=== PATIENT | female | born 1950 | race Caucasian/White ===

== ENCOUNTER 2016-11-01 21:53 | Inpatient (IN) | payer OTHER ==
[~2016-11-01] VITALS: Ht 167.6 cm; Wt 58.6 kg
--- NOTE | 2016-11-01 22:30 | ERA ---
ER Documentation Chief Complaint Date/Time DATE: 11/01/16 TIME: 22:30 Chief Complaint BIBA RA90 from [facility] ([facility]), hyperglycemia BS 436,left hip pain HPI The patient is a 66-year-old female, presenting to the ER because of high blood glucose today at the long term, acute on chronic left hip pain. She denies any trauma, denies any fever, chills, neck pain, chest pain, dyspnea, abdominal pain, nausea, vomiting, dysuria, diarrhea. She does not smoke nor drink, walks with a walker. She was on antibiotic for left ischium decubitus ulcer for 10 days, ended 4 days ago. 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 ROS All systems reviewed and are negative except as per history of present illness. Medications Home Meds Reported Medications Ascorbic Acid* (Ascorbic Acid*) 500 Mg/5 Ml Syrup, 500 MG PO DAILY, #150 ML 11/02/16 Multivitamins* (Theragran*) 1 Tab Tab, 1 TAB PO DAILY, TAB 11/02/16 Ferrous Sulfate* (Ferrous Sulfate*) 325 Mg Tabec, 325 MG PO DAILY, TAB 11/02/16 Docusate Sodium* (Colace*) 100 Mg Capsule, 100 MG PO BID for HX CONSTIPATION, # 60 CAP TAKE 100MG TWICE DAILY FOR HX CONSTIPATION ; HOLD FOR LBM - 0900AM and 1700PM 11/02/16 Aspirin* (Aspirin* Chew) 81 Mg Tab.chew, 81 MG PO DAILY, TAB.CHEW 11/02/16 Insulin Detemir (Levemir Flextouch) 100 Unit/1 Ml Insuln.pen, 30 UNIT SQ DAILY FOR DM ONCE DAILY : 0900AM 11/02/16 Arginine/Ascorbate Sod/Thom AC (Arginaid Powder) 1 Each Powd.pack, 1 EACH PO BID 11/02/16 Bisacodyl* (Dulcolax*) 5 Mg Tablet.dr, 5 MG PO DAILY for CONSTIPATION, TAB 11/02/16 Allergies Allergies: Coded Allergies: Penicillins (Verified Allergy, Unknown, 11/01/16) Physical Exam Vitals Vital Signs Date Time Temp Pulse Resp B/P Pulse Ox O2 Delivery O2 Flow Rate FiO2 11/01/16 23:45 1.0 11/01/16 22:46 48 16 141/74 98 Nasal Cannula 2.0 11/01/16 22:08 98.7 98 18 125/64 95 Physical Exam Const: No acute distress. Dehydrated Head: Atraumatic. Eyes: Normal Conjunctiva. ENT: Normal External Ears, Nose and Mouth. Neck: Full range of motion. No meningismus. Resp: Clear to auscultation bilaterally. Cardio: Regular rate and rhythm. Abd: Soft, non distended, normal bowel sounds, non tender. Skin: No petechiae or rashes. Back: No midline or flank tenderness. Left ischium and lumbar decub ulcer. Ext: No cyanosis, or edema. Neur: Awake and alert. No focal deficit Psych: Normal Mood and Affect. Genitourinary: Large vulvar erosive lesion Result Diagram: 11/01/16 2300 11/01/16 2300 Results 24 hrs Laboratory Tests Test 11/01/16 21:56 11/01/16 22:41 11/01/16 23:00 11/02/16 01:02 Bedside Glucose 436mg/dL 330mg/dL Blood Gas Specimen Source Blood arterial Arterial Blood Date Drawn 11/01/2016 11:36:58 PM Arterial Blood pH (Temp corrected) 7.394 Arterial Blood pCO2 (Temp correct) 43.0mmhg Arterial Blood pO2 (Temp corrected) 88.0mmHG Arterial Blood HCO3 25.7mmol/L Arterial Blood Base Excess 0.6mmol/L Arterial Blood Oxygen Saturation 96.6mmHG Ashok Test N/A Arterial Blood Gas Puncture Site Right Brachial Arterial Blood Carboxyhemoglobin 0.1% Arterial Blood Methemoglobin 0.2% Blood Gas A-a O2 Differential 32.0mmHg Oxyhemoglobin Percent 96.3% Total Hemoglobin 11.3g/dl Blood Gas Temperature 37.0C Blood Gas Modality NASAL CANNULA FiO2 24.0% Blood Gas Notified Whom MG Blood Gas Notified Time 11/01/2016 11:41:24 PM White Blood Count 5.910^3/ul Red Blood Count 3.9310^6/ul Hemoglobin 10.1g/dl Hematocrit 33.3% Mean Corpuscular Volume 84.7fl Mean Corpuscular Hemoglobin 25.7pg Mean Corpuscular Hemoglobin Concent 30.3g/dl Red Cell Distribution Width 19.9% Platelet Count 96147^3/UL Mean Platelet Volume 10.6fl Neutrophils % 60.3% Lymphocytes % 24.7% Monocytes % 7.6% Eosinophils % 6.3% Basophils % 0.8% Nucleated Red Blood Cells % 0.0/100WBC Neutrophils # 3.610^3/ul Lymphocytes # 1.510^3/ul Monocytes # 0.510^3/ul Eosinophils # 0.410^3/ul Basophils # 0.110^3/ul Nucleated Red Blood Cells # 0.010^3/ul Prothrombin Time 11.6Sec Prothrombin Time Ratio 0.9 INR International Normalized Ratio 0.85 Activated Partial Thromboplast Time 29.1Sec Sodium Level 137mmol/L Potassium Level 4.5mmol/L Chloride Level 103mmol/L Carbon Dioxide Level 27mmol/L Anion Gap 12 Blood Urea Nitrogen 27mg/dl Creatinine 0.97mg/dl Glucose Level 394mg/dl Lactic Acid Level 1.3mmol/L Calcium Level 10.5mg/dl Total Bilirubin 0.0mg/dl Direct Bilirubin 0.00mg/dl Indirect Bilirubin 0.0mg/dl Aspartate Amino Transf (AST/SGOT) 22IU/L Alanine Aminotransferase (ALT/SGPT) 40IU/L Alkaline Phosphatase 94IU/L Total Protein 7.4g/dl Albumin 4.4g/dl Globulin 3.00g/dl Albumin/Globulin Ratio 1.46 Current Medications Medications (Trade) Dose Ordered Sig/Juanis Route PRN Reason Start Time Stop Time Status Last Admin Dose Admin Sodium Chloride (NS) 1,000 ml @ 1,000 mls/hr Q1H ONCE IV 11/02/16 00:30 11/02/16 01:29 DC 11/02/16 01:08 Insulin Human Lispro 10 unit 10 unit ONCE STAT SC 11/02/16 00:16 11/02/16 00:18 DC 11/02/16 01:05 Vancomycin HCl 250 ml @ 125 mls/hr ONCE IVPB 11/02/16 01:30 11/02/16 03:29 Meropenem (Merrem 500 Mg/ 100 ml (Pmx)) 100 ml @ 200 mls/hr NOW STAT IVPB 11/02/16 01:10 11/02/16 01:39 DC Procedures/[place] [id number] Radiology Main Line: [phone] DIAGNOSTIC IMAGING REPORT Patient: GEORGIA GAMBOA : 1950 Age: 66 Sex: F MR #: [id number] DOS: 11/01/162240 Ordering MD: DIONI BLAND MD Location: E/R Room/Bed: PROCEDURE: XR Hip. CLINICAL INDICATION: Injury to the left hip status post fall. TECHNIQUE: AP and frog lateral views of the left hip were performed. COMPARISON: None. FINDINGS: Question avulsion injuries at the lateral aspect of the left inferior pubic ramus, and consider CT correlation. These otherwise age indeterminate. No acute fracture dislocation is otherwise identified. IMPRESSION: 1. Question avulsion injuries at the lateral aspect of the left inferior pubic ramus. 2. These are age indeterminate. 3. Consider CT correlation. 4. Otherwise, no acute fracture. RPTAT: UU Physician Jona Date Time Electronically viewed and signed by Physician Jona on 11/01/2016 23:50 RS/ CC: DIONI BLAND MD [place] [id number] Radiology Main Line: [phone] DIAGNOSTIC IMAGING REPORT Patient: GEORGIA GAMBOA : 1950 Age: 66 Sex: F MR #: [id number] DOS: 11/01/162240 Ordering MD: DIONI BLAND MD Location: E/R Room/Bed: PROCEDURE: XR Chest. CLINICAL INDICATION: Hyperglycemia. TECHNIQUE: Single frontal view of the chest. COMPARISON: None. FINDINGS: The cardiomediastinal silhouette is within normal limits. The lungs are clear. No signs of pleural fluid or pneumothorax are seen. The osseous structures and soft tissues are unremarkable. IMPRESSION: No evidence for active cardiopulmonary disease. RPTAT: UU Physician Jona Date Time Electronically viewed and signed by Ana Jarrell Physician on 11/01/2016 23:52 RS/ CC: DIONI BLAND MD [place] [id number] Radiology Main Line: [phone] DIAGNOSTIC IMAGING REPORT Patient: GEORGIA GAMBOA : 1950 Age: 66 Sex: F MR #: [id number] DOS: 11/01/16 2241 Ordering MD: DIONI BLAND MD Location: E/R Room/Bed: PROCEDURE: CT Head without. CLINICAL INDICATION: Trauma status post fall. TECHNIQUE: The study was performed utilizing a multi-slice, multidetector CT scanner. Direct spiral 1 mm axial sections were obtained through the head without the use of intravenous contrast material. 1 or more of the following dose reduction techniques were utilized: Automated exposure control, adjustment of the mA and/or kV according to patient's size, iterative reconstruction technique. Coronal and sagittal reformations were obtained. The images were reviewed on a PACS workstation. RADIATION DOSE: CTDIvol: 45.0 mGy DLP: 720.2 mGy-cm COMPARISON: No prior studies are available for comparison. FINDINGS: There is no intracranial hemorrhage, extra-axial fluid collection, mass lesion, midline shift or hydrocephalus. There is mild to moderate prominence of the cerebral sulci, lateral and third ventricles. There is mild periventricular and subcortical white matter hypodensity. There is mild arteriosclerotic calcification of the parasellar internal carotid arteries. The owens-white matter differentiation is preserved. The basal cisterns are patent. The midline structures are intact. The orbits are normal in appearance. There is mild soft tissue swelling in the right supraorbital region without evidence of underlying calvarial fracture. The visualized paranasal sinuses are normally aerated. There is mild fluid opacification of the bilateral mastoid air cells and middle ear cavities are normally aerated. No evidence of coalescent mastoiditis IMPRESSION: 1. No acute intracranial abnormality. No intracranial hemorrhage, extra-axial fluid collection, mass lesion or hydrocephalous. 2. Mild to moderate peripheral and central cerebral volume loss. 3. Soft tissue swelling in the right supraorbital region without evidence of underlying calvarial fracture. 4. Mild periventricular and subcortical white matter hypodensity, likely related to chronic microangiopathic changes. RPTAT: HGAS .Blayne Quarles MD, MD Date Time Electronically viewed and signed by .Blayne Quarles MD, MD on 11/01/2016 23: 31 .S/ CC: DIONI BLAND MD [place] [id number] Radiology Main Line: [phone] DIAGNOSTIC IMAGING REPORT Patient: GEORGIA GAMBOA : 1950 Age: 66 Sex: F MR #: [id number] DOS: 11/02/16 0012 Ordering MD: DIONI BLAND MD Location: E/R Room/Bed: PROCEDURE: CT Pelvis without contrast. CLINICAL INDICATION: Pelvic pain. TECHNIQUE: A CT scan of the pelvis was performed without intravenous contrast. Coronal and sagittal reformatted images were obtained from the axial source images. Images were reviewed on a high-resolution PACS workstation. CTDIvol: 8.46 mGy. DLP: 256.98 mGy-cm. COMPARISON: None. FINDINGS: There is erosion and sclerosis of the left ischium and inferior pubic ramus, with adjacent periosteal reaction. There is a skin defect and subcutaneous fat infiltration directly posterior to this region. These findings are consistent with a stage IV decubitus ulcer with osteomyelitis. No fracture or dislocation is identified. The visualized small and large bowel are normal in caliber. No perienteric or pericolonic inflammation is seen. There is a hlbsjpyi-sf-wtdvf amount of retained gas and stool in the colon. There is presacral fat infiltration, nonspecific. The appendix is not identified. The uterus is retroverted. No adnexal mass is identified. There is no pelvic lymphadenopathy. No ascites or pneumoperitoneum is seen. Minimal arterial calcifications are noted. There is subcutaneous edema in the pelvis, left more than right. IMPRESSION: 1. Osteomyelitis of the left ischium and inferior pubic ramus, with an underlying stage IV decubitus ulcer. 2. Presacral fat infiltration, nonspecific. 3. Subcutaneous edema in the pelvis, left more than right. 4. Keqtsajl-km-tvmkp amount retained gas and stool in the colon. RPTAT: HTAR .Ramon Johnson MD, MD Date Time Electronically viewed and signed by .Ramon Johnson MD, on 11/02/2016 00:55 .R/ CC: DIONI BLAND MD Sed rate and urinalysis, left ischium and decubitus ulcer culture are pending MEDICAL MAKING DECISION: The patient is a 66-year-old female, presenting with acute left ischium and inferior pubic rami osteomyelitis, stage IV decubitus ulcer, acute diabetic hyperglycemia, acute dehydration. She was treated with 1 L normal saline, Humalog 10 units subcutaneously for acute diabetic hyperglycemia, vancomycin IV and meropenem IV for acute osteomyelitis Critical Care: Time: 35 minutes excluding all billable procedures. Treatments/Evaluations: Close monitoring and treatment of unstable vital signs, cardiorespiratory, and neurologic status, while maintaining tight balance of fluid, respiratory, and cardiac interventions. Departure Diagnosis: Primary Impression: Osteomyelitis of pelvic region, acute Additional Impressions: Sacral decubitus ulcer, stage IV Hyperglycemia due to type 2 diabetes mellitus Dehydration Condition: Stable Comments Consultation: I discussed the patient with the on-call orthopedist Dr. Tello at 1: 40 AM, who was made aware of the lab, the treatment, the CT scan finding. He recommended transferring the patient for higher level of care DIONI BLAND MD Nov 01, 2016 22:30
[2016-11-01 23:21] LABS: BASOPHIL # 0.1 10^3/ul (0.0-0.1); BASOPHILS % 0.8 % (0.0-2.0); EOSINOPHILS # 0.4 10^3/ul (0.0-0.5); EOSINOPHILS % 6.3 % (0.0-7.0); HEMATOCRIT 33.3 % (37.0-47.0); HEMOGLOBIN 10.1 g/dl (12.0-16.0); LYMPHOCYTES # 1.5 10^3/ul (0.8-2.9); LYMPHOCYTES % 24.7 % (15.0-51.0); MEAN CORPUSCULAR HEMOGLOBIN 25.7 pg (29.0-33.0); MEAN CORPUSCULAR HGB CONC 30.3 g/dl (32.0-37.0); MEAN CORPUSCULAR VOLUME 84.7 fl (82.0-101.0); MEAN PLATELET VOLUME 10.6 fl (7.4-10.4); MONOCYTE # 0.5 10^3/ul (0.3-0.9); MONOCYTES % 7.6 % (0.0-11.0); NEUTROPHIL # 3.6 10^3/ul (1.6-7.5); NEUTROPHILS % 60.3 % (39.0-77.0); PLATELET COUNT 293 10^3/UL (140-415); RED BLOOD COUNT 3.93 10^6/ul (4.20-5.40); RED CELL DISTRIBUTION WIDTH 19.9 % (11.5-14.5); WHITE BLOOD COUNT 5.9 10^3/ul (4.8-10.8)
[2016-11-01 23:24] LABS: ADD SCAN DIFF NO
--- NOTE | 2016-11-01 23:31 | RADRPT ---
PROCEDURE: CT Head without. CLINICAL INDICATION: Trauma status post fall. TECHNIQUE: The study was performed utilizing a multi-slice, multidetector CT scanner. Direct spira l 1 mm axial sections were obtained through the head without the use of intravenous contrast materia l. 1 or more of the following dose reduction techniques were utilized: Automated exposure control, adjustment of the mA and/or kV according to patient's size, iterative reconstruction technique. Co zeina and sagittal reformations were obtained. The images were reviewed on a PACS workstation. RADIATION DOSE: CTDIvol: 45.0 mGyDLP: 720.2 mGy-cm COMPARISON: No prior studies are available for comparison. FINDINGS: There is no intracranial hemorrhage, extra-axial fluid collection, mass lesion, midline shift or hyd rocephalus. There is mild to moderate prominence of the cerebral sulci, lateral and third ventricle s. There is mild periventricular and subcortical white matter hypodensity. There is mild arteriosc lerotic calcification of the parasellar internal carotid arteries. The owens-white matter differenti ation is preserved. The basal cisterns are patent. The midline structures are intact. The orbits are normal in appearance. There is mild soft tissue swelling in the right supraorbital region withou t evidence of underlying calvarial fracture. The visualized paranasal sinuses are normally aerated. There is mild fluid opacification of the bilateral mastoid air cells and middle ear cavities are n ormally aerated. No evidence of coalescent mastoiditis IMPRESSION: 1. No acute intracranial abnormality. No intracranial hemorrhage, extra-axial fluid collection, ma ss lesion or hydrocephalous. 2. Mild to moderate peripheral and central cerebral volume loss. 3. Soft tissue swelling in the right supraorbital region without evidence of underlying calvarial f racture. 4. Mild periventricular and subcortical white matter hypodensity, likely related to chronic microan giopathic changes. RPTAT: HGAS .Blayne Quarles MD, Date Time Electronically viewed and signed by .Blayne Quarles MD, MD on 11/01/2016 23:31 .S/
[2016-11-01 23:36] LABS: INR 0.85; PARTIAL THROMBOPLASTIN TIME 29.1 Sec (25.0-35.0); PROTIME 11.6 Sec (12.2-14.2); PT RATIO 0.9
[2016-11-01 23:38] LABS: ALBUMIN 4.4 g/dl (3.3-4.9); ALBUMIN/GLOBULIN RATIO 1.46; CALCIUM 10.5 mg/dl (8.4-10.2); CREATININE 0.97 mg/dl (0.44-1.00); POTASSIUM 4.5 mmol/L (3.5-5.1); TOTAL PROTEIN 7.4 g/dl (6.1-8.1)
[2016-11-01 23:41] LABS: Arterial Base Excess 0.6 mmol/L (-3.0-3); Arterial COHb 0.1 % (0.0-3.0); Arterial Fraction of Oxyhgb 96.3 % (93.0-99.0); Arterial HCO3 25.7 mmol/L (22.0-26.0); Arterial MetHb 0.2 % (0.0-1.5); Arterial Total Hemglobin 11.3 g/dl (12.0-18.0); MODE NASAL CANNULA
--- NOTE | 2016-11-01 23:50 | RADRPT ---
PROCEDURE: XR Hip. CLINICAL INDICATION: Injury to the left hip status post fall. TECHNIQUE: AP and frog lateral views of the left hip were performed. COMPARISON: None. FINDINGS: Question avulsion injuries at the lateral aspect of the left inferior pubic ramus, and consider CT c orrelation. These otherwise age indeterminate. No acute fracture dislocation is otherwise identified. IMPRESSION: 1. Question avulsion injuries at the lateral aspect of the left inferior pubic ramus. 2. These are age indeterminate. 3. Consider CT correlation. 4. Otherwise, no acute fracture. RPTAT: UU Physician Jona Date Time Electronically viewed and signed by Physician Jona on 11/01/2016 23:50 RS/
--- NOTE | 2016-11-01 23:52 | RADRPT ---
PROCEDURE: XR Chest. CLINICAL INDICATION: Hyperglycemia. TECHNIQUE: Single frontal view of the chest. COMPARISON: None. FINDINGS: The cardiomediastinal silhouette is within normal limits. The lungs are clear. No signs of pleural f luid or pneumothorax are seen. The osseous structures and soft tissues are unremarkable. IMPRESSION: No evidence for active cardiopulmonary disease. RPTAT: UU Physician Jona Date Time Electronically viewed and signed by Physician Jona on 11/01/2016 23:52 RS/
[2016-11-02] MEDS ORDERED: INSULIN LISPRO 100 UNIT/ML VIAL SC STA (00:16)
[2016-11-02] MEDS ORDERED: SOD CHLORIDE 0.9% 1,000 ML IV ONE (00:30)
--- NOTE | 2016-11-02 00:56 | RADRPT ---
PROCEDURE: CT Pelvis without contrast. CLINICAL INDICATION: Pelvic pain. TECHNIQUE: A CT scan of the pelvis was performed without intravenous contrast. Coronal and sagitt al reformatted images were obtained from the axial source images. Images were reviewed on a high-res [employer] PACS workstation. CTDIvol: 8.46 mGy. DLP: 256.98 mGy-cm. COMPARISON: None. FINDINGS: There is erosion and sclerosis of the left ischium and inferior pubic ramus, with adjacent periostea l reaction. There is a skin defect and subcutaneous fat infiltration directly posterior to this shashi on. These findings are consistent with a stage IV decubitus ulcer with osteomyelitis. No fracture o r dislocation is identified. The visualized small and large bowel are normal in caliber. No perienteric or pericolonic inflammat ion is seen. There is a sykbmzzq-ko-nsian amount of retained gas and stool in the colon. There is pr esacral fat infiltration, nonspecific. The appendix is not identified. The uterus is retroverted. No adnexal mass is identified. There is no pelvic lymphadenopathy. No ascites or pneumoperitoneum is seen. Minimal arterial calci fications are noted. There is subcutaneous edema in the pelvis, left more than right. IMPRESSION: 1. Osteomyelitis of the left ischium and inferior pubic ramus, with an underlying stage IV decubitu s ulcer. 2. Presacral fat infiltration, nonspecific. 3. Subcutaneous edema in the pelvis, left more than right. 4. Goodniov-is-stifp amount retained gas and stool in the colon. RPTAT: HTAR .Ramon Johnson MD, Date Time Electronically viewed and signed by .Ramon Johnson MD, MD on 11/02/2016 00:55 .R/
[2016-11-02] MEDS ORDERED: MEROPENEM 500 MG/100 ML (PMX) 100 ML IVPB STA (01:10)
[2016-11-02] MEDS ORDERED: VANCOMYCIN 1 GM (PMX) 250 ML IVPB SCH (01:30)
[2016-11-02] MEDS ORDERED: BISA-57 PO (01:39)
[2016-11-02] MEDS ORDERED: INSU100I27 SQ (01:39)
[2016-11-02] MEDS ORDERED: ASPI81TA3 PO (01:39)
[2016-11-02] MEDS ORDERED: DOCU-144 PO (01:39)
[2016-11-02] MEDS ORDERED: ARGI1POW19 PO (01:39)
[2016-11-02] MEDS ORDERED: ASCO500S2 PO (01:40)
[2016-11-02] MEDS ORDERED: MULTI PO (01:40)
[2016-11-02] MEDS ORDERED: FER325 PO (01:40)
[2016-11-02] MEDS ORDERED: NA P230E RC (01:57)
[2016-11-02] MEDS ORDERED: OLAN2.5T4 PO (01:57)
[2016-11-02] MEDS ORDERED: ZINC220C5 PO (01:57)
[2016-11-02] MEDS ORDERED: PARO30TA68 PO (01:57)
[2016-11-02] MEDS ORDERED: ATOR10TA65 PO (01:57)
[2016-11-02] MEDS ORDERED: LEVO88TA3 PO (01:58)
[2016-11-02] MEDS ORDERED: TYL500 PO (01:58)
[2016-11-02] MEDS ORDERED: MAGN400O4 PO (01:58)
[2016-11-02] MEDS ORDERED: SOD CHLORIDE 0.9% 1,000 ML IV SCH (03:21)
[2016-11-02] MEDS ORDERED: morphine 2 MG INJ IV PRN (03:30)
[2016-11-02] MEDS ORDERED: ONDANSETRON 4 MG INJ IV PRN (03:30)
[2016-11-02] MEDS ORDERED: ACETAMINOPHEN 325 MG TAB PO PRN (03:30)
[2016-11-02] MEDS ORDERED: NACL 0.9% 3 ML SYG IV SCH (03:30)
[2016-11-02] MEDS ORDERED: DEXTROSE 50% 50 ML SYRINGE IV PRN ×2 (03:45)
[2016-11-02] MEDS ORDERED: GLUCOSE GEL 15 GRAM TUBE PO PRN ×2 (03:45)
[2016-11-02] MEDS ORDERED: GLUCOSE GEL 15 GRAM TUBE BUCCAL PRN (03:45)
[2016-11-02] MEDS ORDERED: GLUCAGON 1 MG INJ IM PRN (03:45)
[2016-11-02] MEDS ORDERED: LEVOFLOXACIN 750MG/D5W (PMX) 150 ML IVPB SCH (04:00)
[2016-11-02] MEDS ORDERED: VANCOMYCIN IV PER PHARMACY XX SCH (04:00)
[2016-11-02 04:19] VITALS: TEMP 98.3
[2016-11-02] MEDS: HEPARIN 5,000 UNIT/0.5 ML VIAL SC SCH ×3 (05:00→20:31)
[2016-11-02 05:08] VITALS: Ht 167.6 cm; Wt 58.6 kg
[2016-11-02 05:15] VITALS: BP 143/65; PULSE 71; RESP 18
[2016-11-02] MEDS: LEVOFLOXACIN 750MG/D5W (PMX) 150 ML IVPB SCH (06:11)
[2016-11-02 08:45] VITALS: BP 147/82; RESP 18
[2016-11-02] MEDS: LEVOTHYROXINE 88 MCG TAB PO SCH (08:50)
[2016-11-02] MEDS: INSULIN ASPART [NOVOLOG] 3 ML PEN SC SCH ×5 (08:50→23:02)
[2016-11-02] MEDS: MULTIVITAMINS THERAPEUTIC TAB PO SCH (08:51)
[2016-11-02] MEDS: ZINC SULFATE 220 MG CAP PO SCH (08:51)
[2016-11-02] MEDS: FERROUS SULFATE (EC) 325 MG TAB PO SCH (08:51)
[2016-11-02] MEDS: OLANZAPINE 2.5 MG TAB PO SCH ×2 (08:51→20:29)
[2016-11-02] MEDS: ASPIRIN 81 MG TAB PO SCH (08:51)
[2016-11-02] MEDS: PAROXETINE 10 MG TAB PO SCH (08:51)
--- NOTE | 2016-11-02 08:54 | HP ---
Date/Time of Note Date/Time of Note DATE: 11/02/16 TIME: 08:33 Assessment/Plan VTE Prophylaxis VTE Prophylaxis Intervention: heparin Lines/Catheters IV Catheter Type (from [facility]): Peripheral IV Urinary Cath still in place: No Assessment/Plan Chief Complaint/Hosp Course This is a 66-year-old female being admitted to the [facility] floor for: #1 Osteomyelitis of the left atrium and pubic ramus: CT identified osteomyelitis. Patient at the current time is afebrile and white blood cell count was within normal values. Nonetheless we will start patient on vancomycin and Levaquin at this time for broad-spectrum coverage. Patient is allergic to penicillins. Orthopedic doctor Elisha was notified of the findings however it was recommended the patient be transferred to higher level of care. [facility] case fitter was spoken to however no accepting facility was found at this time it was recommended that the patient be admitted to [facility] and [facility] will try to find a transferring facility in the morning. Continue pain control. #2 stage IV decubitus ulcer: Ulcer was underlying #1. Patient currently on antibiotics. Will consult wound care for further valuation and treatment strategy. #3 diabetes mellitus: Patient's blood sugars are elevated today in the [facility] and around the 300s at our facility. At the current time will resume patient's home medications and put patient on insulin sliding scale and attempt to monitor blood sugars. #4 hypothyroidism: Continue patient's home medication #5 mental health: Patient with history of schizophrenia and depression. 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 #7 anemia: Continue to monitor this time. Blood transfusions as indicated. #8 DVT and GI prophylaxis: Heparin, Protonix Further treatment strategy will be implemented as per the clinical course. We are awaiting [facility] to find at the transferring facility that we can transfer the patient for higher level of care. Problems: HPI/ROS Admit Date/Time Admit Date/Time Nov 02, 2016 at 02:58 Hx of Present Illness cc: high blood glucose The patient is a 66-year-old female, presenting to the ER because of high blood glucose today at the [facility], acute on chronic left hip pain. She denies any trauma, denies any fever, chills, neck pain, chest pain, dyspnea, abdominal pain, nausea, vomiting, dysuria, diarrhea. She does not smoke nor drink, walks with a walker. She was on antibiotic for left ischium decubitus ulcer for 10 days, ended 4 days ago. She had a pelvic MRI about 4 days ago, the result is unknown. When I examined the patient the patient denies any hip pain. Allergies: Penicillins Medications: See SMITHA ARIAS Const: As per HPI Eyes : No pain discharge or redness or change in visual acuity ENT: No pain, sore throat, congestion, congestion, dysphagia or discharge Respiratory: No shortness of breath, cough, sputum, wheezing, or pleuritic pain Cardiovascular: No chest pain, palpitation, PND, or edema GI : no change in appetite, abdominal pain, nausea, vomiting, diarrhea, constipation, or change in the color his stool Genitourinary: No dysuria, hematuria, flank pain , discharge or CVA tenderness Musculoskeletal: As per HPI Skin: No rash, bruising or hives Neuro: No headache, dizziness, syncope, seizure, focal weakness Endocrine: No polyuria, polydipsia, temperature intolerance Psych: No hallucination, depression, anxiety or suicidal ideation PMH/Family/Social Past Medical History Diabetes mellitus, anemia, dyslipidemia, hypothyroidism, GERD, schizophrenia, depression, history of vulvar malignancy treated with radiation 6 months ago, history of lumbar and left ischium decubitus ulcer about 6 months after radiation therapy Past Surgical History Past Surgical Hx: no surgical history Family History Significant Family History: no pertinent family hx Social History Smoking Status: Former smoker Exam/Review of Systems Vital Signs Vitals Vital Signs Date Time Temp Pulse Resp B/P Pulse Ox O2 Delivery O2 Flow Rate FiO2 11/02/16 05:15 98.0 71 18 143/65 98 Nasal Cannula 2.0 Exam Exam General: Patient is a pleasant female laying in bed in no acute distress HEENT: Atraumatic, normocephalic. The pupils are equal, round and reactive. Extraocular motor are intact Neck: Supple with full range of motion. No rigidity or meningismus Chest: Nontender Lungs: Clear to auscultation bilaterally no crackles rales or wheezing Heart: Normal S1-S2, Regular rhythm and rate. No murmur, S3, or S4 Abdomen: Soft , nontender, nondistended , bowel sounds are present. No guarding no rebound tenderness , No masses or organomegaly. No costovertebral temporal angle mass Extremities: Normal to inspection, no edema no cyanosis Neurologic: Normal mental status, speech normal, cranial nerves II through XII are intact, motor and sensory are intact, no focal weakness Skin: Mild bruising noted on the bilateral arms and of the left upper eyelid Additional Comments PROCEDURE: XR Chest. CLINICAL INDICATION: Hyperglycemia. TECHNIQUE: Single frontal view of the chest. COMPARISON: None. FINDINGS: The cardiomediastinal silhouette is within normal limits. The lungs are clear. No signs of pleural fluid or pneumothorax are seen. The osseous structures and soft tissues are unremarkable. IMPRESSION: No evidence for active cardiopulmonary disease. RPTAT: [facility] Physician Jona Date Time Electronically viewed and signed by Physician Jona on 11/01/2016 23:52 RS/ CC: DIONI BLAND MD [place] [id number] Radiology Main Line: [phone] DIAGNOSTIC IMAGING REPORT Patient: GEORGIA GAMBOA : 1950 Age: 66 Sex: F [id number] DOS: 11/01/16 2241 Ordering MD: DIONI BLAND MD Location: E/R Room/Bed: PROCEDURE: CT Head without. CLINICAL INDICATION: Trauma status post fall. TECHNIQUE: The study was performed utilizing a multi-slice, multidetector CT scanner. Direct spiral 1 mm axial sections were obtained through the head without the use of intravenous contrast material. 1 or more of the following dose reduction techniques were utilized: Automated exposure control, adjustment of the mA and/or kV according to patient's size, iterative reconstruction technique. Coronal and sagittal reformations were obtained. The images were reviewed on a PACS workstation. RADIATION DOSE: CTDIvol: 45.0 mGy DLP: 720.2 mGy-cm COMPARISON: No prior studies are available for comparison. FINDINGS: There is no intracranial hemorrhage, extra-axial fluid collection, mass lesion, midline shift or hydrocephalus. There is mild to moderate prominence of the cerebral sulci, lateral and third ventricles. There is mild periventricular and subcortical white matter hypodensity. There is mild arteriosclerotic calcification of the parasellar internal carotid arteries. The owens-white matter differentiation is preserved. The basal cisterns are patent. The midline structures are intact. The orbits are normal in appearance. There is mild soft tissue swelling in the right supraorbital region without evidence of underlying calvarial fracture. The visualized paranasal sinuses are normally aerated. There is mild fluid opacification of the bilateral mastoid air cells and middle ear cavities are normally aerated. No evidence of coalescent mastoiditis IMPRESSION: 1. No acute intracranial abnormality. No intracranial hemorrhage, extra-axial fluid collection, mass lesion or hydrocephalous. 2. Mild to moderate peripheral and central cerebral volume loss. 3. Soft tissue swelling in the right supraorbital region without evidence of underlying calvarial fracture. 4. Mild periventricular and subcortical white matter hypodensity, likely related to chronic microangiopathic changes. RPTAT: HGAS .Blayne Quarles MD, MD Date Time Electronically viewed and signed by .Blayne Quarles MD, MD on 11/01/2016 23: 31 .S/ CC: DIONI BLAND MD [place] [id number] Radiology Main Line: [phone] DIAGNOSTIC IMAGING REPORT Patient: GEORGIA GAMBOA : 1950 Age: 66 Sex: F MR #: [id number] DOS: 11/02/16 0012 Ordering MD: DIONI BLAND MD Location: E/R Room/Bed: PROCEDURE: CT Pelvis without contrast. CLINICAL INDICATION: Pelvic pain. TECHNIQUE: A CT scan of the pelvis was performed without intravenous contrast. Coronal and sagittal reformatted images were obtained from the axial source images. Images were reviewed on a high-resolution PACS workstation. CTDIvol: 8.46 mGy. DLP: 256.98 mGy-cm. COMPARISON: None. FINDINGS: There is erosion and sclerosis of the left ischium and inferior pubic ramus, with adjacent periosteal reaction. There is a skin defect and subcutaneous fat infiltration directly posterior to this region. These findings are consistent with a stage IV decubitus ulcer with osteomyelitis. No fracture or dislocation is identified. The visualized small and large bowel are normal in caliber. No perienteric or pericolonic inflammation is seen. There is a qncptfeh-[id number] amount of retained gas and stool in the colon. There is presacral fat infiltration, nonspecific. The appendix is not identified. The uterus is retroverted. No adnexal mass is identified. There is no pelvic lymphadenopathy. No ascites or pneumoperitoneum is seen. Minimal arterial calcifications are noted. There is subcutaneous edema in the pelvis, left more than right. IMPRESSION: 1. Osteomyelitis of the left ischium and inferior pubic ramus, with an underlying stage IV decubitus ulcer. 2. Presacral fat infiltration, nonspecific. 3. Subcutaneous edema in the pelvis, left more than right. 4. Qrgghgjs-[id number]-iqzqu amount retained gas and stool in the colon. RPTAT: HTAR .Ramon Johnson MD, MD Date Time Electronically viewed and signed by .Ramon Johnson MD, on 11/02/2016 00:55 .R/ Labs Result Diagram: 11/01/16 2300 11/01/16 2300 Medications Medications Current Medications Aspirin (Aspirin) 81 mg DAILY PO ; Start 11/02/16 at 09:00 Atorvastatin Calcium (Lipitor) 10 mg QHS PO ; Start 11/02/16 at 21:00 Bisacodyl (Dulcolax) 5 mg DAILY PO ; Start 11/02/16 at 09:00 Docusate Sodium (Colace) 100 mg BID PO ; Start 11/02/16 at 09:00 Ferrous Sulfate (Ferrous Sulfate (Ec)) 325 mg DAILY PO ; Start 11/02/16 at 09:00 Insulin Detemir (Levemir) 30 unit QHS SC ; Start 11/02/16 at 21:00 Magnesium Hydroxide (Milk Of Mag) 30 ml BID PO ; Start 11/02/16 at 09:00 Multivitamins Therapeutic (Theragran) 1 tab DAILY PO ; Start 11/02/16 at 09:00 Olanzapine (Zyprexa) 2.5 mg BID PO ; Start 11/02/16 at 09:00 Paroxetine HCl (Paxil) 30 mg DAILY PO ; Start 11/02/16 at 09:00 Zinc Sulfate 220 mg 220 mg DAILY PO ; Start 11/02/16 at 09:00 Sodium Chloride (NS) 1,000 ml @ 75 mls/hr [id number] IV Last administered on t 06:11; Admin Dose 75 MLS/HR; Start 11/02/16 at 03:21 Ondansetron HCl (Zofran Inj) 4 mg Q6H PRN IV NAUSEA AND/OR VOMITING; Start 11/02 at 03:30 Acetaminophen (Tylenol Tab) 650 mg Q6H PRN PO PAIN LEVEL 1-3 OR FEVER; Start at 03:30 Morphine Sulfate (morphine) 2 mg Q4H PRN IV PAIN LEVEL 7-10; Start 11/02/16 at 03:30 Heparin Sodium (Porcine) (Heparin (5000 Units/0.5 ml)) 5,000 unit Q12 SC ; Start 11/02/16 at 03:36 Diagnostic Test (Pha) (Accu-Chek) 1 ea 02 XX ; Start 11/03/16 at 02:00 Miscellaneous Information 1 ea NOTE XX ; Start 11/02/16 at 03:45 Glucose (Glutose) 15 gm Q15M PRN PO DECREASED GLUCOSE; Start 11/02/16 at 03:45 Glucose (Glutose) 22.5 gm Q15M PRN PO DECREASED GLUCOSE; Start 11/02/16 at 03:45 Dextrose (D50w Syringe) 25 ml Q15M PRN IV DECREASED GLUCOSE; Start 11/02/16 at 03:45 Dextrose (D50w Syringe) 50 ml Q15M PRN IV DECREASED GLUCOSE; Start 11/02/16 at 03:45 Glucagon (Glucagen) 1 mg Q15M PRN IM DECREASED GLUCOSE; Start 11/02/16 at 03:45 Glucose 15 gm 15 gm Q15M PRN BUCCAL DECREASED GLUCOSE; Start 11/02/16 at 03:45 Vancomycin HCl 750 mg/Sodium Chloride 150 ml @ 75 mls/hr Q12H IVPB ; Start 11/02 at 15:00 Levofloxacin/ Dextrose (Levaquin 750 Mg/ D5W 150 ml (Pmx)) 150 ml @ 100 mls/hr Q24H IVPB Last administered on 11/02/16t 06:11; Admin Dose 100 MLS/HR; Start 11/02/16 at 06:00 FREDY KAUFMAN Nov 02, 2016 08:44
[2016-11-02] MEDS ORDERED: DOCUSATE SODIUM 100 MG CAP PO SCH ×2 (09:00→11:00)
[2016-11-02] MEDS ORDERED: BISACODYL (EC) 5 MG TAB PO SCH (09:00)
[2016-11-02] MEDS ORDERED: MAGNESIUM HYDROXIDE 30ML CUP PO SCH (09:00)
[2016-11-02] MEDS ORDERED: POLYETHYLENE GLYCOL 17 GM PACKET PO SCH (11:00)
[2016-11-02] MEDS: SOD CHLORIDE 0.9% 1,000 ML IV SCH ×2 (11:00→23:02)
[2016-11-02] MEDS: VANCOMYCIN 750 MG in SOD CHLORIDE 0.9% 150 ML IVPB SCH (15:20)
--- NOTE | 2016-11-02 15:52 | QN ---
Documentation Comment No indication for transfer at this time No acute surgical need unless indicated by ID continue broad spectrum abx for now and f/u ID recommendations. ROBERT OTTO Nov 02, 2016 15:52
[2016-11-02 20:11] VITALS: BP 137/79; RESP 19
[2016-11-02] MEDS: INSULIN DETEMIR [LEVEMIR] 3ML CART SC SCH (20:28)
[2016-11-02] MEDS: ATORVASTATIN 10 MG TAB PO SCH (20:29)
[2016-11-03] MEDS: ACCU-CHEK XX SCH (02:06)
[2016-11-03] MEDS: VANCOMYCIN 750 MG in SOD CHLORIDE 0.9% 150 ML IVPB SCH (03:33)
[2016-11-03] MEDS: LEVOFLOXACIN 750MG/D5W (PMX) 150 ML IVPB SCH (05:39)
[2016-11-03] MEDS: LEVOTHYROXINE 88 MCG TAB PO SCH (06:37)
[2016-11-03 06:43] LABS: BASOPHIL # 0.1 10^3/ul (0.0-0.1); BASOPHILS % 1.3 % (0.0-2.0); EOSINOPHILS # 0.4 10^3/ul (0.0-0.5); EOSINOPHILS % 7.3 % (0.0-7.0); HEMATOCRIT 34.1 % (37.0-47.0); HEMOGLOBIN 10.3 g/dl (12.0-16.0); LYMPHOCYTES # 1.6 10^3/ul (0.8-2.9); LYMPHOCYTES % 30.2 % (15.0-51.0); MEAN CORPUSCULAR HEMOGLOBIN 25.9 pg (29.0-33.0); MEAN CORPUSCULAR HGB CONC 30.2 g/dl (32.0-37.0); MEAN CORPUSCULAR VOLUME 85.7 fl (82.0-101.0); MEAN PLATELET VOLUME 10.7 fl (7.4-10.4); MONOCYTE # 0.4 10^3/ul (0.3-0.9); MONOCYTES % 6.7 % (0.0-11.0); NEUTROPHIL # 2.9 10^3/ul (1.6-7.5); NEUTROPHILS % 54.1 % (39.0-77.0); PLATELET COUNT 297 10^3/UL (140-415); RED BLOOD COUNT 3.98 10^6/ul (4.20-5.40); RED CELL DISTRIBUTION WIDTH 20.1 % (11.5-14.5); WHITE BLOOD COUNT 5.4 10^3/ul (4.8-10.8)
[2016-11-03 07:04] LABS: IRON 54 ug/dl (35-150)
[2016-11-03 07:08] LABS: ADD SCAN DIFF NO; ALBUMIN/GLOBULIN RATIO 1.33; BILIRUBIN,INDIRECT 0.1 mg/dl (0-1.1); BILIRUBIN,TOTAL 0.1 mg/dl (0.2-1.3); CALCIUM 10.1 mg/dl (8.4-10.2); CREATININE 0.76 mg/dl (0.44-1.00); POTASSIUM 4.3 mmol/L (3.5-5.1)
[2016-11-03 07:13] LABS: TOTAL IRON BINDING CAPACITY 336 ug/dl (241-421)
[2016-11-03] MEDS: INSULIN ASPART [NOVOLOG] 3 ML PEN SC SCH ×4 (08:15→21:00)
[2016-11-03 08:21] VITALS: BP 130/72; RESP 18
[2016-11-03] MEDS: POLYETHYLENE GLYCOL 17 GM PACKET PO SCH (08:59)
[2016-11-03] MEDS: MULTIVITAMINS THERAPEUTIC TAB PO SCH (08:59)
[2016-11-03] MEDS: ASPIRIN 81 MG TAB PO SCH (08:59)
[2016-11-03] MEDS: PAROXETINE 10 MG TAB PO SCH (08:59)
[2016-11-03] MEDS: FERROUS SULFATE (EC) 325 MG TAB PO SCH (08:59)
[2016-11-03] MEDS ORDERED: MAGNESIUM HYDROXIDE 30ML CUP PO PRN (09:00)
[2016-11-03] MEDS ORDERED: DOCUSATE SODIUM 100 MG CAP PO PRN (09:00)
[2016-11-03] MEDS ORDERED: BISACODYL (EC) 5 MG TAB PO PRN (09:00)
[2016-11-03] MEDS ORDERED: MAGNESIUM HYDROXIDE 30ML CUP PO SCH (09:00)
[2016-11-03] MEDS ORDERED: BISACODYL (EC) 5 MG TAB PO SCH (09:00)
[2016-11-03] MEDS ORDERED: DOCUSATE SODIUM 100 MG CAP PO SCH (09:00)
[2016-11-03] MEDS: OLANZAPINE 2.5 MG TAB PO SCH ×2 (09:03→21:01)
[2016-11-03] MEDS: ZINC SULFATE 220 MG CAP PO SCH (09:04)
[2016-11-03] MEDS: HEPARIN 5,000 UNIT/0.5 ML VIAL SC SCH ×2 (09:11→21:02)
[2016-11-03] MEDS: SOD CHLORIDE 0.9% 1,000 ML IV SCH (12:00)
[2016-11-03] MEDS: VANCOMYCIN 1 GM in NS 250 ML IVPB SCH (15:53)
--- NOTE | 2016-11-03 16:11 | CONS ---
Date/Time of Note Date/Time of Note DATE: 11/03/16 TIME: 16:10 Assessment/Plan Assessment/Plan Chief Complaint/Hosp Course ID SHORT NOTE * * * ID ASSESSMENT 1. ID RECOMMENDATIONS 1. ID Problems: Consultation Date/Type/Reason Admit Date/Time Nov 02, 2016 at 13:50 Initial Consult Date Exam/Review of Systems Vital Signs Vitals Vital Signs Date Time Temp Pulse Resp B/P Pulse Ox O2 Delivery O2 Flow Rate FiO2 11/03/16 08:21 98.2 81 18 130/72 95 11/02/16 05:15 Nasal Cannula 2.0 Intake and Output 11/02/16 11/02/16 11/03/16 15:00 23:00 07:00 Intake Total 300 ml 1210 ml 450 ml Balance 300 ml 1210 ml 450 ml Results Result Diagram: 11/03/16 0613 11/03/16 0613 Results 24 hrs Laboratory Tests Test 11/02/16 17:23 11/02/16 20:25 11/02/16 22:57 11/03/16 02:06 Bedside Glucose 277 H 310 H 202 119 Test 11/03/16 06:13 11/03/16 08:21 11/03/16 12:33 11/03/16 14:15 White Blood Count 5.4 Red Blood Count 3.98 L Hemoglobin 10.3 L Hematocrit 34.1 L Mean Corpuscular Volume 85.7 Mean Corpuscular Hemoglobin 25.9 L Mean Corpuscular Hemoglobin Concent 30.2 L Red Cell Distribution Width 20.1 H Platelet Count 297 Mean Platelet Volume 10.7 H Neutrophils % 54.1 Lymphocytes % 30.2 Monocytes % 6.7 Eosinophils % 7.3 H Basophils % 1.3 Nucleated Red Blood Cells % 0.0 Neutrophils # 2.9 Lymphocytes # 1.6 Monocytes # 0.4 Eosinophils # 0.4 Basophils # 0.1 Nucleated Red Blood Cells # 0.0 Sodium Level 143 Potassium Level 4.3 Chloride Level 103 Carbon Dioxide Level 27 Anion Gap 17 H Blood Urea Nitrogen 22 H Creatinine 0.76 Glucose Level 75 # Calcium Level 10.1 Iron Level 54 Total Iron Binding Capacity 336 Percent Iron Saturation 16 L Total Bilirubin 0.1 L Direct Bilirubin 0.00 Indirect Bilirubin 0.1 Aspartate Amino Transf (AST/SGOT) 27 Alanine Aminotransferase (ALT/SGPT) 44 Alkaline Phosphatase 89 Total Protein 7.0 Albumin 4.0 Globulin 3.00 Albumin/Globulin Ratio 1.33 Bedside Glucose 73 170 Vancomycin Level Trough 11.7 Medications Medications Current Medications Aspirin (Aspirin) 81 mg DAILY PO Last administered on 11/03/16 08:59; Admin Dose 81 MG; Start 11/02/16 at 09:00 Atorvastatin Calcium (Lipitor) 10 mg QHS PO Last administered on 11/02/16 20:29 ; Admin Dose 10 MG; Start 11/02/16 at 21:00 Ferrous Sulfate (Ferrous Sulfate (Ec)) 325 mg DAILY PO Last administered on 11/03 08:59; Admin Dose 325 MG; Start 11/02/16 at 09:00 Insulin Detemir (Levemir) 30 unit QHS SC Last administered on 11/02/16 20:28; Admin Dose 30 UNIT; Start 11/02/16 at 21:00 Multivitamins Therapeutic (Theragran) 1 tab DAILY PO Last administered on 08:59; Admin Dose 1 TAB; Start 11/02/16 at 09:00 Olanzapine (Zyprexa) 2.5 mg BID PO Last administered on 11/03/16 09:03; Admin Dose 2.5 MG; Start 11/02/16 at 09:00 Paroxetine HCl (Paxil) 30 mg DAILY PO Last administered on 11/03/16 08:59; Admin Dose 30 MG; Start 11/02/16 at 09:00 Zinc Sulfate (Zinc Sulfate) 220 mg DAILY PO Last administered on 11/03/16 09:04 ; Admin Dose 220 MG; Start 11/02/16 at 09:00 Ondansetron HCl (Zofran Inj) 4 mg Q6H PRN IV NAUSEA AND/OR VOMITING; Start 11/02 at 03:30 Acetaminophen (Tylenol Tab) 650 mg Q6H PRN PO PAIN LEVEL 1-3 OR FEVER; Start at 03:30 Morphine Sulfate (morphine) 2 mg Q4H PRN IV PAIN LEVEL 7-10; Start 11/02/16 at 03:30 Heparin Sodium (Porcine) (Heparin (5000 Units/0.5 ml)) 5,000 unit Q12 SC Last administered on 11/03/16 09:11; Admin Dose 5,000 UNIT; Start 11/02/16 at 03:36 Diagnostic Test (Pha) (Accu-Chek) 1 ea 02 XX Last administered on 11/03/16 02: 06; Admin Dose 1 EA; Start 11/03/16 at 02:00 Miscellaneous Information 1 ea NOTE XX ; Start 11/02/16 at 03:45 Glucose (Glutose) 15 gm Q15M PRN PO DECREASED GLUCOSE; Start 11/02/16 at 03:45 Glucose (Glutose) 22.5 gm Q15M PRN PO DECREASED GLUCOSE; Start 11/02/16 at 03:45 Dextrose (D50w Syringe) 25 ml Q15M PRN IV DECREASED GLUCOSE; Start 11/02/16 at 03:45 Dextrose (D50w Syringe) 50 ml Q15M PRN IV DECREASED GLUCOSE; Start 11/02/16 at 03:45 Glucagon (Glucagen) 1 mg Q15M PRN IM DECREASED GLUCOSE; Start 11/02/16 at 03:45 Glucose 15 gm 15 gm Q15M PRN BUCCAL DECREASED GLUCOSE; Start 11/02/16 at 03:45 Levofloxacin/ Dextrose (Levaquin 750 Mg/ D5W 150 ml (Pmx)) 150 ml @ 100 mls/hr Q24H IVPB Last administered on 11/03/16 05:39; Admin Dose 100 MLS/HR; Start 11/02/16 at 06:00 Polyethylene Glycol (Miralax) 8.5 gm DAILY PO Last administered on 11/03/16 08: 59; Admin Dose 8.5 GM; Start 11/03/16 at 09:00 Bisacodyl (Dulcolax) 5 mg BID PRN PO CONSTIPATION; Start 11/03/16 at 09:00 Docusate Sodium (Colace) 100 mg BID PRN PO CONSTIPATION; Start 11/03/16 at 09:00 Magnesium Hydroxide 30 ml 30 ml DAILY PRN PO CONSTIPATION; Start 11/03/16 at 09: 00 Vancomycin HCl (Vancocin) 250 ml @ 125 mls/hr Q12H IVPB Last administered on 15:53; Admin Dose 125 MLS/HR; Start 11/03/16 at 15:30 TOMER GUEVARA NP Nov 03, 2016 16:11
--- NOTE | 2016-11-03 16:16 | CONS ---
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 Referring Provider: FREDY KAUFMAN Patient is a 66-year-old woman who was transferred on 11/01/2016 from [facility] with a chief complaint of hyperglycemia of 436 and left hip pain. Prior to this time the patient was on antibiotic therapy 10 days for left ischial decubitus. Her situation was complicated by anemia dyslipidemia hypothyroidism gastroesophageal reflux disease and diabetes mellitus. Patient was diagnosed as having vulvar carcinoma more than 6 months ago and received a course of radiation therapy. The patient had a discomfort in this area and had developed a ulceration the over the left ischium. She presently has a large erosive lesion. X-ray of the left hip revealed avulsion injuries at the lateral aspect of the left inferior pubic ramus. A CT scan scan of the pelvis revealed subcutaneous edema left being greater than the right.. The patient is currently being treated for osteomyelitis which involves vancomycin and Levaquin because the patient is penicillin allergic. Culture of the drainage from the left ischial decubitus is currently growing small numbers of gram-positive cocci and a gram-negative chiki. The patient has not been febrile and has not had elevation of white blood cell count with a white blood cell count being 5900. Past medical history patient has a history of schizophrenia Diabetes mellitus Anemia Hyperlipidemia Hypothyroidism Gastroesophageal reflux disease And history of valvular malignancy status post radiation treatment 6 months ago. History of ischial and sacral decubitus ulcer. Her medications included the previously mentioned medication Argent aid as aspirin 81 mg iron 325 mg daily and vitamin C. Patient is allergic to penicillin. Physical examination: pleasant, obese, confused, and resistant to clinical information. Pupils equal round react to light extraocular movements are full mucous HEENT: Membranes of the mouth are moist. Teeth are in poor repair. No jugular venous distention. Chest: Clear to percussion and auscultation. Heart: Regular no gallop murmur or rub. Abdomen: Protuberant, obese. Bowel sounds present swelling pubic area nondraining ulcer left ischium and sacral area. Extremities: No edema cyanosis. Neurologic: Alert conversant. Not a good historian. Resists talking about serious problems. Cranial nerves II through XII grossly within normal limits. Motor sensory and cerebellar appear to be grossly intact. Gait testing was not performed. Diagnosis: Osteomyelitis left ischium Unstageable ulcers left ischium and sacrum Recent vulvar carcinoma status post radiation therapy 6 months Gastroesophageal reflux disease Schizophrenia. Recommendations: Continue vancomycin pending culture results Substitute ceftriaxone for Levaquin. Penicillin allergy is rarely if ever a problem. This medication gives a much higher blood level then Levaquin which in this case is especially essential because the patient has compromised circulation blood supply because of radiation therapy. The x-rays intimate that there may be an equivalent to a sequestrum by the avulsion fragments in the left ischium described previously. There may be a general healing problem because of the paucity of blood vessels due to radiation therapy and scarring. She may require a muscular low cutaneous vascular pedicle to adequately treat the situation eventually. She probably will need removal of any loose pieces of bone that would affect his sequestra. I have seen this patient for Dr.Jerrold Ingram. Aurelio Escobedo MD Past Surgical History Past Surgical Hx: no surgical history Social History Smoking Status: Former smoker Exam/Review of Systems Vital Signs Vitals Vital Signs Date Time Temp Pulse Resp B/P Pulse Ox O2 Delivery O2 Flow Rate FiO2 11/03/16 08:21 98.2 81 18 130/72 95 11/02/16 05:15 Nasal Cannula 2.0 Intake and Output 11/02/16 11/02/16 11/03/16 15:00 23:00 07:00 Intake Total 300 ml 1210 ml 450 ml Balance 300 ml 1210 ml 450 ml Results Result Diagram: 11/03/16 0613 11/03/16 0613 Results 24 hrs Laboratory Tests Test 11/02/16 17:23 11/02/16 20:25 11/02/16 22:57 11/03/16 02:06 Bedside Glucose 277 H 310 H 202 119 Test 11/03/16 06:13 11/03/16 08:21 11/03/16 12:33 11/03/16 14:15 White Blood Count 5.4 Red Blood Count 3.98 L Hemoglobin 10.3 L Hematocrit 34.1 L Mean Corpuscular Volume 85.7 Mean Corpuscular Hemoglobin 25.9 L Mean Corpuscular Hemoglobin Concent 30.2 L Red Cell Distribution Width 20.1 H Platelet Count 297 Mean Platelet Volume 10.7 H Neutrophils % 54.1 Lymphocytes % 30.2 Monocytes % 6.7 Eosinophils % 7.3 H Basophils % 1.3 Nucleated Red Blood Cells % 0.0 Neutrophils # 2.9 Lymphocytes # 1.6 Monocytes # 0.4 Eosinophils # 0.4 Basophils # 0.1 Nucleated Red Blood Cells # 0.0 Sodium Level 143 Potassium Level 4.3 Chloride Level 103 Carbon Dioxide Level 27 Anion Gap 17 H Blood Urea Nitrogen 22 H Creatinine 0.76 Glucose Level 75 # Calcium Level 10.1 Iron Level 54 Total Iron Binding Capacity 336 Percent Iron Saturation 16 L Total Bilirubin 0.1 L Direct Bilirubin 0.00 Indirect Bilirubin 0.1 Aspartate Amino Transf (AST/SGOT) 27 Alanine Aminotransferase (ALT/SGPT) 44 Alkaline Phosphatase 89 Total Protein 7.0 Albumin 4.0 Globulin 3.00 Albumin/Globulin Ratio 1.33 Bedside Glucose 73 170 Vancomycin Level Trough 11.7 Medications Medications Current Medications Aspirin (Aspirin) 81 mg DAILY PO Last administered on 11/03/16 08:59; Admin Dose 81 MG; Start 11/02/16 at 09:00 Atorvastatin Calcium (Lipitor) 10 mg QHS PO Last administered on 11/02/16 20:29 ; Admin Dose 10 MG; Start 11/02/16 at 21:00 Ferrous Sulfate (Ferrous Sulfate (Ec)) 325 mg DAILY PO Last administered on 11/03 08:59; Admin Dose 325 MG; Start 11/02/16 at 09:00 Insulin Detemir (Levemir) 30 unit QHS SC Last administered on 11/02/16 20:28; Admin Dose 30 UNIT; Start 11/02/16 at 21:00 Multivitamins Therapeutic (Theragran) 1 tab DAILY PO Last administered on 08:59; Admin Dose 1 TAB; Start 11/02/16 at 09:00 Olanzapine (Zyprexa) 2.5 mg BID PO Last administered on 11/03/16 09:03; Admin Dose 2.5 MG; Start 11/02/16 at 09:00 Paroxetine HCl (Paxil) 30 mg DAILY PO Last administered on 11/03/16 08:59; Admin Dose 30 MG; Start 11/02/16 at 09:00 Zinc Sulfate (Zinc Sulfate) 220 mg DAILY PO Last administered on 11/03/16 09:04 ; Admin Dose 220 MG; Start 11/02/16 at 09:00 Ondansetron HCl (Zofran Inj) 4 mg Q6H PRN IV NAUSEA AND/OR VOMITING; Start 11/02 at 03:30 Acetaminophen (Tylenol Tab) 650 mg Q6H PRN PO PAIN LEVEL 1-3 OR FEVER; Start at 03:30 Morphine Sulfate (morphine) 2 mg Q4H PRN IV PAIN LEVEL 7-10; Start 11/02/16 at 03:30 Heparin Sodium (Porcine) (Heparin (5000 Units/0.5 ml)) 5,000 unit Q12 SC Last administered on 11/03/16 09:11; Admin Dose 5,000 UNIT; Start 11/02/16 at 03:36 Diagnostic Test (Pha) (Accu-Chek) 1 ea 02 XX Last administered on 11/03/16 02: 06; Admin Dose 1 EA; Start 11/03/16 at 02:00 Miscellaneous Information 1 ea NOTE XX ; Start 11/02/16 at 03:45 Glucose (Glutose) 15 gm Q15M PRN PO DECREASED GLUCOSE; Start 11/02/16 at 03:45 Glucose (Glutose) 22.5 gm Q15M PRN PO DECREASED GLUCOSE; Start 11/02/16 at 03:45 Dextrose (D50w Syringe) 25 ml Q15M PRN IV DECREASED GLUCOSE; Start 11/02/16 at 03:45 Dextrose (D50w Syringe) 50 ml Q15M PRN IV DECREASED GLUCOSE; Start 11/02/16 at 03:45 Glucagon (Glucagen) 1 mg Q15M PRN IM DECREASED GLUCOSE; Start 11/02/16 at 03:45 Glucose 15 gm 15 gm Q15M PRN BUCCAL DECREASED GLUCOSE; Start 11/02/16 at 03:45 Levofloxacin/ Dextrose (Levaquin 750 Mg/ D5W 150 ml (Pmx)) 150 ml @ 100 mls/hr Q24H IVPB Last administered on 11/03/16 05:39; Admin Dose 100 MLS/HR; Start 11/02/16 at 06:00 Polyethylene Glycol (Miralax) 8.5 gm DAILY PO Last administered on 11/03/16 08: 59; Admin Dose 8.5 GM; Start 11/03/16 at 09:00 Bisacodyl (Dulcolax) 5 mg BID PRN PO CONSTIPATION; Start 11/03/16 at 09:00 Docusate Sodium (Colace) 100 mg BID PRN PO CONSTIPATION; Start 11/03/16 at 09:00 Magnesium Hydroxide 30 ml 30 ml DAILY PRN PO CONSTIPATION; Start 11/03/16 at 09: 00 Vancomycin HCl (Vancocin) 250 ml @ 125 mls/hr Q12H IVPB ; Start 11/03/16 at 15: 30 Aurelio ESCOBEDO MD Nov 03, 2016 16:15
[2016-11-03] MEDS ORDERED: CEFTRIAXONE 1 GM/50 ML (PMX) 50 ML IVPB SCH (17:00)
[2016-11-03] MEDS ORDERED: CEFTRIAXONE 1 GM INJ IVPB SCH (17:00)
[2016-11-03] MEDS: CEFTRIAXONE 2 GM/50 ML (PMX) 50 ML IVPB SCH (18:23)
--- NOTE | 2016-11-03 19:30 | PN ---
Date/Time of Note Date/Time of Note DATE: 11/03/16 TIME: 19:22 Assessment/Plan VTE Prophylaxis VTE Prophylaxis Intervention: heparin Lines/Catheters IV Catheter Type (from [facility]): Saline Lock Urinary Cath still in place: No Assessment/Plan Assessment/Plan This is a 66-year-old female being admitted to the [facility] floor for: #1 Osteomyelitis of the left atrium and pubic ramus: CT identified osteomyelitis. From History obtained from , this is chronic but has never been completely treated. The patient has no active ulcer at this time, just a deep indentation where the wound sample was taken. #2 Hx of stage IV decubitus ulcer: Ulcer was underlying #1. No need for debridement, no further intervention required #3 diabetes mellitus: Good in-house control #4 hypothyroidism: Continue patient's home medication #5 mental health: Patient with history of schizophrenia and depression. 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 #7 anemia: Continue to monitor this time. Blood transfusions as indicated. #8 DVT and GI prophylaxis: Heparin, Protonix Further treatment strategy will be implemented as per the clinical course. Patient does not want to go back to previous NH, she will need new placement. Pelvic osteo will need residential abx if ID determines it worth it to treat. requesting Gynonc review for possible hysterectomy for vulval cancer, patient however at this time is not a good surgical candidate. This may be pursued outpt. Subjective 24 Hr Interval Summary Free Text/Dictation patient doing well , spoke with for >35mins to get a detailed history Exam/Review of Systems Vital Signs Vitals Vital Signs Date Time Temp Pulse Resp B/P Pulse Ox O2 Delivery O2 Flow Rate FiO2 11/03/16 08:21 98.2 81 18 130/72 95 11/02/16 05:15 Nasal Cannula 2.0 Intake and Output 11/02/16 11/02/16 11/03/16 15:00 23:00 07:00 Intake Total 300 ml 1210 ml 450 ml Balance 300 ml 1210 ml 450 ml Exam General: Patient is a pleasant female laying in bed in no acute distress HEENT: Atraumatic, normocephalic. The pupils are equal, round and reactive. Extraocular motor are intact Neck: Supple with full range of motion. Chest: Nontender Lungs: Clear to auscultation bilaterally no crackles rales or wheezing Heart: Normal S1-S2, Regular rhythm and rate. No murmur, S3, or S4 Abdomen: Soft , nontender, nondistended , bowel sounds are present. Skin: Mild bruising noted on the bilateral arms and of the left upper eyelid Neurology: no focal but patient has cognitive deficits : Radiation changes and swelling to vulva covered with Calmoseptine cream Results Result Diagram: 11/03/1613 11/03/16 0613 Results 24 hrs Laboratory Tests Test 11/02/16 20:25 11/02/16 22:57 11/03/16 02:06 11/03/16 06:13 Bedside Glucose 310 H 202 119 White Blood Count 5.4 Red Blood Count 3.98 L Hemoglobin 10.3 L Hematocrit 34.1 L Mean Corpuscular Volume 85.7 Mean Corpuscular Hemoglobin 25.9 L Mean Corpuscular Hemoglobin Concent 30.2 L Red Cell Distribution Width 20.1 H Platelet Count 297 Mean Platelet Volume 10.7 H Neutrophils % 54.1 Lymphocytes % 30.2 Monocytes % 6.7 Eosinophils % 7.3 H Basophils % 1.3 Nucleated Red Blood Cells % 0.0 Neutrophils # 2.9 Lymphocytes # 1.6 Monocytes # 0.4 Eosinophils # 0.4 Basophils # 0.1 Nucleated Red Blood Cells # 0.0 Sodium Level 143 Potassium Level 4.3 Chloride Level 103 Carbon Dioxide Level 27 Anion Gap 17 H Blood Urea Nitrogen 22 H Creatinine 0.76 Glucose Level 75 # Calcium Level 10.1 Iron Level 54 Total Iron Binding Capacity 336 Percent Iron Saturation 16 L Total Bilirubin 0.1 L Direct Bilirubin 0.00 Indirect Bilirubin 0.1 Aspartate Amino Transf (AST/SGOT) 27 Alanine Aminotransferase (ALT/SGPT) 44 Alkaline Phosphatase 89 Total Protein 7.0 Albumin 4.0 Globulin 3.00 Albumin/Globulin Ratio 1.33 Test 11/03/16 08:21 11/03/16 12:33 11/03/16 14:15 11/03/16 17:40 Bedside Glucose 73 170 199 Vancomycin Level Trough 11.7 Medications Medications Current Medications Aspirin (Aspirin) 81 mg DAILY PO Last administered on 11/03/16t 08:59; Admin Dose 81 MG; Start 11/02/16 at 09:00 Atorvastatin Calcium (Lipitor) 10 mg QHS PO Last administered on 11/02/16 20:29 ; Admin Dose 10 MG; Start 11/02/16 at 21:00 Ferrous Sulfate (Ferrous Sulfate (Ec)) 325 mg DAILY PO Last administered on 11/03 08:59; Admin Dose 325 MG; Start 11/02/16 at 09:00 Insulin Detemir (Levemir) 30 unit QHS SC Last administered on 11/02/16 20:28; Admin Dose 30 UNIT; Start 11/02/16 at 21:00 Multivitamins Therapeutic (Theragran) 1 tab DAILY PO Last administered on 08:59; Admin Dose 1 TAB; Start 11/02/16 at 09:00 Olanzapine (Zyprexa) 2.5 mg BID PO Last administered on 11/03/16 09:03; Admin Dose 2.5 MG; Start 11/02/16 at 09:00 Paroxetine HCl (Paxil) 30 mg DAILY PO Last administered on 11/03/16 08:59; Admin Dose 30 MG; Start 11/02/16 at 09:00 Zinc Sulfate (Zinc Sulfate) 220 mg DAILY PO Last administered on 11/03/16 09:04 ; Admin Dose 220 MG; Start 11/02/16 at 09:00 Ondansetron HCl (Zofran Inj) 4 mg Q6H PRN IV NAUSEA AND/OR VOMITING; Start 11/02 at 03:30 Acetaminophen (Tylenol Tab) 650 mg Q6H PRN PO PAIN LEVEL 1-3 OR FEVER; Start at 03:30 Morphine Sulfate (morphine) 2 mg Q4H PRN IV PAIN LEVEL 7-10; Start 11/02/16 at 03:30 Heparin Sodium (Porcine) (Heparin (5000 Units/0.5 ml)) 5,000 unit Q12 SC Last administered on 11/03/16 09:11; Admin Dose 5,000 UNIT; Start 11/02/16 at 03:36 Diagnostic Test (Pha) (Accu-Chek) 1 ea 02 XX Last administered on 11/03/16 02: 06; Admin Dose 1 EA; Start 11/03/16 at 02:00 Miscellaneous Information 1 ea NOTE XX ; Start 11/02/16 at 03:45 Glucose (Glutose) 15 gm Q15M PRN PO DECREASED GLUCOSE; Start 11/02/16 at 03:45 Glucose (Glutose) 22.5 gm Q15M PRN PO DECREASED GLUCOSE; Start 11/02/16 at 03:45 Dextrose (D50w Syringe) 25 ml Q15M PRN IV DECREASED GLUCOSE; Start 11/02/16 at 03:45 Dextrose (D50w Syringe) 50 ml Q15M PRN IV DECREASED GLUCOSE; Start 11/02/16 at 03:45 Glucagon (Glucagen) 1 mg Q15M PRN IM DECREASED GLUCOSE; Start 11/02/16 at 03:45 Glucose (Glutose) 15 gm Q15M PRN BUCCAL DECREASED GLUCOSE; Start 11/02/16 at 03: 45 Polyethylene Glycol (Miralax) 8.5 gm DAILY PO Last administered on 11/03/16 08: 59; Admin Dose 8.5 GM; Start 11/03/16 at 09:00 Bisacodyl (Dulcolax) 5 mg BID PRN PO CONSTIPATION Last administered on 17:44; Admin Dose 5 MG; Start 11/03/16 at 09:00 Docusate Sodium (Colace) 100 mg BID PRN PO CONSTIPATION; Start 11/03/16 at 09:00 Magnesium Hydroxide 30 ml 30 ml DAILY PRN PO CONSTIPATION; Start 11/03/16 at 09: 00 Vancomycin HCl 250 ml @ 125 mls/hr Q12H IVPB Last administered on 11/03/16 15: 53; Admin Dose 125 MLS/HR; Start 11/03/16 at 15:30 Ceftriaxone Sodium (Rocephin) 50 ml @ 100 mls/hr Q24H IVPB Last administered on 11/03/16 18:23; Admin Dose 100 MLS/HR; Start 11/03/16 at 18:00 ROBERT OTTO Nov 03, 2016 19:29
[2016-11-03 19:42] VITALS: BP 145/77; RESP 18
[2016-11-03] MEDS: ATORVASTATIN 10 MG TAB PO SCH (21:01)
[2016-11-03] MEDS: INSULIN DETEMIR [LEVEMIR] 3ML CART SC SCH (21:05)
[2016-11-04] MEDS: ACCU-CHEK XX SCH (02:00)
[2016-11-04] MEDS: VANCOMYCIN 1 GM in NS 250 ML IVPB SCH ×2 (03:06→15:28)
[2016-11-04 05:46] LABS: BASOPHIL # 0.1 10^3/ul (0.0-0.1); BASOPHILS % 1.6 % (0.0-2.0); EOSINOPHILS # 0.5 10^3/ul (0.0-0.5); EOSINOPHILS % 10.3 % (0.0-7.0); HEMATOCRIT 34.3 % (37.0-47.0); HEMOGLOBIN 10.3 g/dl (12.0-16.0); LYMPHOCYTES # 1.5 10^3/ul (0.8-2.9); LYMPHOCYTES % 32.5 % (15.0-51.0); MEAN CORPUSCULAR HEMOGLOBIN 25.8 pg (29.0-33.0); MEAN PLATELET VOLUME 10.7 fl (7.4-10.4); MONOCYTE # 0.4 10^3/ul (0.3-0.9); MONOCYTES % 8.7 % (0.0-11.0); NEUTROPHIL # 2.1 10^3/ul (1.6-7.5); NEUTROPHILS % 46.7 % (39.0-77.0); PLATELET COUNT 278 10^3/UL (140-415); RED BLOOD COUNT 3.99 10^6/ul (4.20-5.40); RED CELL DISTRIBUTION WIDTH 20.7 % (11.5-14.5); WHITE BLOOD COUNT 4.5 10^3/ul (4.8-10.8)
[2016-11-04 05:55] LABS: ADD SCAN DIFF NO
[2016-11-04] MEDS: LEVOTHYROXINE 88 MCG TAB PO SCH (06:09)
[2016-11-04 06:10] LABS: CALCIUM 9.9 mg/dl (8.4-10.2); CREATININE 0.79 mg/dl (0.44-1.00); MAGNESIUM 2.1 mg/dl (1.7-2.5)
[2016-11-04 07:56] VITALS: BP 140/72; RESP 18
[2016-11-04] MEDS: INSULIN ASPART [NOVOLOG] 3 ML PEN SC SCH ×4 (08:15→22:18)
[2016-11-04] MEDS: PAROXETINE 10 MG TAB PO SCH (09:59)
[2016-11-04] MEDS: ZINC SULFATE 220 MG CAP PO SCH (09:59)
[2016-11-04] MEDS: ASPIRIN 81 MG TAB PO SCH (09:59)
[2016-11-04] MEDS: MULTIVITAMINS THERAPEUTIC TAB PO SCH (09:59)
[2016-11-04] MEDS: OLANZAPINE 2.5 MG TAB PO SCH ×2 (09:59→22:17)
[2016-11-04] MEDS: POLYETHYLENE GLYCOL 17 GM PACKET PO SCH (09:59)
[2016-11-04] MEDS: FERROUS SULFATE (EC) 325 MG TAB PO SCH (09:59)
[2016-11-04] MEDS: HEPARIN 5,000 UNIT/0.5 ML VIAL SC SCH ×2 (10:07→22:20)
--- NOTE | 2016-11-04 17:14 | PN ---
Date/Time of Note Date/Time of Note DATE: 11/04/16 TIME: 17:10 Assessment/Plan VTE Prophylaxis VTE Prophylaxis Intervention: heparin Lines/Catheters IV [facility] Saline Lock Urinary Cath still in place: No Assessment/Plan Chief Complaint/Hosp Course #1 Osteomyelitis of the left atrium and pubic ramus: CT identified osteomyelitis. From History obtained from , this is chronic but has never been completely treated. The patient has no active ulcer at this time, just a deep indentation where the wound sample was taken. #2 Hx of stage IV decubitus ulcer: Ulcer was underlying #1. No need for debridement, no further intervention required #3 diabetes mellitus: Good in-house control #4 hypothyroidism: Continue patient's home medication #5 mental health: Patient with history of schizophrenia and depression. At the current time we will continue her home medications #6 history of vulvar malignancy: Patient is status post radiation therapy approximately 6 months ago - requesting Gynonc review for possible hysterectomy for vulval cancer, patient however at this time is not a good surgical candidate. This may be pursued outpt. #7 anemia: Continue to monitor this time. Blood transfusions as indicated. #8 DVT and GI prophylaxis: Heparin, Protonix Discharge planning: DC back to [facility] with [facility], follow with ID recommendations as to the exact antibiotics to be used and the duration Problems: Subjective 24 Hr Interval Summary Constitutional: no complaints Exam/Review of Systems Vital Signs Vitals Vital Signs Date Time Temp Pulse Resp B/P Pulse Ox O2 Delivery O2 Flow Rate FiO2 11/04/16 07:56 97.8 68 18 140/72 95 11/02/16 05:15 Nasal Cannula 2.0 Intake and Output 11/03/16 11/03/16 11/04/16 15:00 23:00 07:00 Intake Total 150 ml 1900 ml 730 ml Balance 150 ml 1900 ml 730 ml Exam Constitutional: alert Respiratory: clear to auscultation Cardiovascular: regular rate and rhythm Gastrointestinal: soft, No distended Musculoskeletal: nl extremities to inspection Results Result Diagram: 11/04/16 0455 11/04/16 0943 Results 24 hrs Laboratory Tests Test 11/03/16 17:40 11/03/16 21:01 11/04/16 04:55 11/04/16 08:01 Bedside Glucose 199 141 50 L White Blood Count 4.5 L Red Blood Count 3.99 L Hemoglobin 10.3 L Hematocrit 34.3 L Mean Corpuscular Volume 86.0 Mean Corpuscular Hemoglobin 25.8 L Mean Corpuscular Hemoglobin Concent 30.0 L Red Cell Distribution Width 20.7 H Platelet Count 278 Mean Platelet Volume 10.7 H Neutrophils % 46.7 Lymphocytes % 32.5 Monocytes % 8.7 Eosinophils % 10.3 H Basophils % 1.6 Nucleated Red Blood Cells % 0.0 Neutrophils # 2.1 Lymphocytes # 1.5 Monocytes # 0.4 Eosinophils # 0.5 Basophils # 0.1 Nucleated Red Blood Cells # 0.0 Sodium Level 143 Potassium Level 4.0 Chloride Level 108 Carbon Dioxide Level 27 Anion Gap 12 Blood Urea Nitrogen 21 H Creatinine 0.79 Glucose Level 51 #L Hemoglobin A1c 8.9 H Calcium Level 9.9 Magnesium Level 2.1 Test 11/04/16 08:37 11/04/16 09:04 11/04/16 09:43 11/04/16 09:44 Bedside Glucose 165 238 H 258 H Glucose Level 234 #H Test 11/04/16 12:01 Bedside Glucose 181 Medications Medications Current Medications Aspirin (Aspirin) 81 mg DAILY PO Last administered on 11/04/16 09:59; Admin Dose 81 MG; Start 11/02/16 at 09:00 Atorvastatin Calcium (Lipitor) 10 mg QHS PO Last administered on 11/03/16 21:01 ; Admin Dose 10 MG; Start 11/02/16 at 21:00 Ferrous Sulfate (Ferrous Sulfate (Ec)) 325 mg DAILY PO Last administered on 11/04 09:59; Admin Dose 325 MG; Start 11/02/16 at 09:00 Insulin Detemir (Levemir) 30 unit QHS SC Last administered on 11/03/16 21:05; Admin Dose 30 UNIT; Start 11/02/16 at 21:00 Multivitamins Therapeutic (Theragran) 1 tab DAILY PO Last administered on 09:59; Admin Dose 1 TAB; Start 11/02/16 at 09:00 Olanzapine (Zyprexa) 2.5 mg BID PO Last administered on 11/04/16 09:59; Admin Dose 2.5 MG; Start 11/02/16 at 09:00 Paroxetine HCl (Paxil) 30 mg DAILY PO Last administered on 11/04/16 09:59; Admin Dose 30 MG; Start 11/02/16 at 09:00 Zinc Sulfate (Zinc Sulfate) 220 mg DAILY PO Last administered on 11/04/16 09:59 ; Admin Dose 220 MG; Start 11/02/16 at 09:00 Ondansetron HCl (Zofran Inj) 4 mg Q6H PRN IV NAUSEA AND/OR VOMITING; Start 11/02 at 03:30 Acetaminophen (Tylenol Tab) 650 mg Q6H PRN PO PAIN LEVEL 1-3 OR FEVER; Start at 03:30 Morphine Sulfate (morphine) 2 mg Q4H PRN IV PAIN LEVEL 7-10; Start 11/02/16 at 03:30 Heparin Sodium (Porcine) (Heparin (5000 Units/0.5 ml)) 5,000 unit Q12 SC Last administered on 11/04/16 10:07; Admin Dose 5,000 UNIT; Start 11/02/16 at 03:36 Diagnostic Test (Pha) (Accu-Chek) 1 ea 02 XX Last administered on 11/03/16 02: 06; Admin Dose 1 EA; Start 11/03/16 at 02:00 Miscellaneous Information 1 ea NOTE XX ; Start 11/02/16 at 03:45 Glucose (Glutose) 15 gm Q15M PRN PO DECREASED GLUCOSE; Start 11/02/16 at 03:45 Glucose (Glutose) 22.5 gm Q15M PRN PO DECREASED GLUCOSE; Start 11/02/16 at 03:45 Dextrose (D50w Syringe) 25 ml Q15M PRN IV DECREASED GLUCOSE; Start 11/02/16 at 03:45 Dextrose (D50w Syringe) 50 ml Q15M PRN IV DECREASED GLUCOSE; Start 11/02/16 at 03:45 Glucagon (Glucagen) 1 mg Q15M PRN IM DECREASED GLUCOSE; Start 11/02/16 at 03:45 Glucose (Glutose) 15 gm Q15M PRN BUCCAL DECREASED GLUCOSE; Start 11/02/16 at 03: 45 Polyethylene Glycol (Miralax) 8.5 gm DAILY PO Last administered on 11/04/16 09: 59; Admin Dose 8.5 GM; Start 11/03/16 at 09:00 Bisacodyl (Dulcolax) 5 mg BID PRN PO CONSTIPATION Last administered on 17:44; Admin Dose 5 MG; Start 11/03/16 at 09:00 Docusate Sodium (Colace) 100 mg BID PRN PO CONSTIPATION; Start 11/03/16 at 09:00 Magnesium Hydroxide 30 ml 30 ml DAILY PRN PO CONSTIPATION; Start 11/03/16 at 09: 00 Vancomycin HCl 250 ml @ 125 mls/hr Q12H IVPB Last administered on 11/04/16 15: 28; Admin Dose 125 MLS/HR; Start 11/03/16 at 15:30 Ceftriaxone Sodium (Rocephin) 50 ml @ 100 mls/hr Q24H IVPB Last administered on 11/03/16 18:23; Admin Dose 100 MLS/HR; Start 11/03/16 at 18:00 GUY ROJO Nov 04, 2016 17:14
--- NOTE | 2016-11-04 17:51 | CONS ---
Date/Time of Note Date/Time of Note DATE: 11/04/16 TIME: 17:41 Assessment/Plan Assessment/Plan Chief Complaint/Hosp Course No acute changes overnight, patient is lying comfortably in bed, no fevers. No labs today. Microbiology: Ischial wound culture grew Proteus mirabilis, enterococcus species , Corynebacterium group JK, coag negative staph species Antimicrobials. Vancomycin and Rocephin Diagnostics: CT of the pelvis revealed osteomyelitis of left ischium Physical examination: Well-developed, fragile elderly woman who is laying comfortably in bed. Head atraumatic, normocephalic, sclera nonicteric. Neck is supple, trachea midline. Chest rise symmetrical, breath sounds diminished to bases. Abdomen soft bowel tones present. Extremities without cyanosis. Assessment: 1. Left ischial osteomyelitis with wound culture growing multiple bacteria 2. Diabetes mellitus 3. History of vulvar malignancy, status post radiation 6 months ago 4. History of schizophrenia and depression Plan: Clinically stable, continue present care, anticipate discharge on current antibiotics for 6 weeks to treat osteomyelitis. Discussed with RN Problems: Consultation Date/Type/Reason Admit Date/Time Nov 02, 2016 at 13:50 Initial Consult Date 11/02/16 Type of Consultation: Infectious disease Referring Provider: FREDY KAUFMAN Exam/Review of Systems Vital Signs Vitals Vital Signs Date Time Temp Pulse Resp B/P Pulse Ox O2 Delivery O2 Flow Rate FiO2 11/04/16 07:56 97.8 68 18 140/72 95 11/02/16 05:15 Nasal Cannula 2.0 Intake and Output 11/03/16 11/03/16 11/04/16 15:00 23:00 07:00 Intake Total 150 ml 1900 ml 730 ml Balance 150 ml 1900 ml 730 ml Results Result Diagram: 11/04/16 0455 11/04/16 0943 Results 24 hrs Laboratory Tests Test 11/03/16 21:01 11/04/16 04:55 11/04/16 08:01 11/04/16 08:37 Bedside Glucose 141 50 L 165 White Blood Count 4.5 L Red Blood Count 3.99 L Hemoglobin 10.3 L Hematocrit 34.3 L Mean Corpuscular Volume 86.0 Mean Corpuscular Hemoglobin 25.8 L Mean Corpuscular Hemoglobin Concent 30.0 L Red Cell Distribution Width 20.7 H Platelet Count 278 Mean Platelet Volume 10.7 H Neutrophils % 46.7 Lymphocytes % 32.5 Monocytes % 8.7 Eosinophils % 10.3 H Basophils % 1.6 Nucleated Red Blood Cells % 0.0 Neutrophils # 2.1 Lymphocytes # 1.5 Monocytes # 0.4 Eosinophils # 0.5 Basophils # 0.1 Nucleated Red Blood Cells # 0.0 Sodium Level 143 Potassium Level 4.0 Chloride Level 108 Carbon Dioxide Level 27 Anion Gap 12 Blood Urea Nitrogen 21 H Creatinine 0.79 Glucose Level 51 #L Hemoglobin A1c 8.9 H Calcium Level 9.9 Magnesium Level 2.1 Test 11/04/16 09:04 11/04/16 09:43 11/04/16 09:44 11/04/16 12:01 Bedside Glucose 238 H 258 H 181 Glucose Level 234 #H Test 11/04/16 17:18 Bedside Glucose 178 Medications Medications Current Medications Aspirin (Aspirin) 81 mg DAILY PO Last administered on 11/04/16 09:59; Admin Dose 81 MG; Start 11/02/16 at 09:00 Atorvastatin Calcium (Lipitor) 10 mg QHS PO Last administered on 11/03/16 21:01 ; Admin Dose 10 MG; Start 11/02/16 at 21:00 Ferrous Sulfate (Ferrous Sulfate (Ec)) 325 mg DAILY PO Last administered on 11/04 09:59; Admin Dose 325 MG; Start 11/02/16 at 09:00 Insulin Detemir (Levemir) 30 unit QHS SC Last administered on 11/03/16 21:05; Admin Dose 30 UNIT; Start 11/02/16 at 21:00 Multivitamins Therapeutic (Theragran) 1 tab DAILY PO Last administered on 09:59; Admin Dose 1 TAB; Start 11/02/16 at 09:00 Olanzapine (Zyprexa) 2.5 mg BID PO Last administered on 11/04/16 09:59; Admin Dose 2.5 MG; Start 11/02/16 at 09:00 Paroxetine HCl (Paxil) 30 mg DAILY PO Last administered on 11/04/16 09:59; Admin Dose 30 MG; Start 11/02/16 at 09:00 Zinc Sulfate (Zinc Sulfate) 220 mg DAILY PO Last administered on 11/04/16 09:59 ; Admin Dose 220 MG; Start 11/02/16 at 09:00 Ondansetron HCl (Zofran Inj) 4 mg Q6H PRN IV NAUSEA AND/OR VOMITING; Start 11/02 at 03:30 Acetaminophen (Tylenol Tab) 650 mg Q6H PRN PO PAIN LEVEL 1-3 OR FEVER; Start at 03:30 Morphine Sulfate (morphine) 2 mg Q4H PRN IV PAIN LEVEL 7-10; Start 11/02/16 at 03:30 Heparin Sodium (Porcine) (Heparin (5000 Units/0.5 ml)) 5,000 unit Q12 SC Last administered on 11/04/16 10:07; Admin Dose 5,000 UNIT; Start 11/02/16 at 03:36 Diagnostic Test (Pha) (Accu-Chek) 1 ea 02 XX Last administered on 11/03/16 02: 06; Admin Dose 1 EA; Start 11/03/16 at 02:00 Miscellaneous Information 1 ea NOTE XX ; Start 11/02/16 at 03:45 Glucose (Glutose) 15 gm Q15M PRN PO DECREASED GLUCOSE; Start 11/02/16 at 03:45 Glucose (Glutose) 22.5 gm Q15M PRN PO DECREASED GLUCOSE; Start 11/02/16 at 03:45 Dextrose (D50w Syringe) 25 ml Q15M PRN IV DECREASED GLUCOSE; Start 11/02/16 at 03:45 Dextrose (D50w Syringe) 50 ml Q15M PRN IV DECREASED GLUCOSE; Start 11/02/16 at 03:45 Glucagon (Glucagen) 1 mg Q15M PRN IM DECREASED GLUCOSE; Start 11/02/16 at 03:45 Glucose (Glutose) 15 gm Q15M PRN BUCCAL DECREASED GLUCOSE; Start 11/02/16 at 03: 45 Polyethylene Glycol (Miralax) 8.5 gm DAILY PO Last administered on 11/04/16 09: 59; Admin Dose 8.5 GM; Start 11/03/16 at 09:00 Bisacodyl (Dulcolax) 5 mg BID PRN PO CONSTIPATION Last administered on 17:44; Admin Dose 5 MG; Start 11/03/16 at 09:00 Docusate Sodium (Colace) 100 mg BID PRN PO CONSTIPATION; Start 11/03/16 at 09:00 Magnesium Hydroxide 30 ml 30 ml DAILY PRN PO CONSTIPATION; Start 11/03/16 at 09: 00 Vancomycin HCl 250 ml @ 125 mls/hr Q12H IVPB Last administered on 11/04/16 15: 28; Admin Dose 125 MLS/HR; Start 11/03/16 at 15:30 Ceftriaxone Sodium (Rocephin) 50 ml @ 100 mls/hr Q24H IVPB Last administered on 11/03/16 18:23; Admin Dose 100 MLS/HR; Start 11/03/16 at 18:00 MARCUS HUITRON [employer] Nov 04, 2016 17:51
[2016-11-04] MEDS: CEFTRIAXONE 2 GM/50 ML (PMX) 50 ML IVPB SCH (18:12)
[2016-11-04 20:00] VITALS: BP 160/78; RESP 18
[2016-11-04] MEDS: ATORVASTATIN 10 MG TAB PO SCH (22:16)
[2016-11-04] MEDS: INSULIN DETEMIR [LEVEMIR] 3ML CART SC SCH (22:19)
[2016-11-04] MEDS ORDERED: INSULIN ASPART [NOVOLOG] 3 ML PEN SC ONE (23:00)
[2016-11-05] MEDS: ACCU-CHEK XX SCH (02:00)
[2016-11-05] MEDS: VANCOMYCIN 1 GM in NS 250 ML IVPB SCH ×2 (03:50→15:36)
[2016-11-05] MEDS: LEVOTHYROXINE 88 MCG TAB PO SCH (06:06)
[2016-11-05 07:21] LABS: CALCIUM 9.7 mg/dl (8.4-10.2); CREATININE 0.72 mg/dl (0.44-1.00); POTASSIUM 4.5 mmol/L (3.5-5.1)
[2016-11-05 07:47] VITALS: BP 129/69; RESP 19
[2016-11-05] MEDS: INSULIN ASPART [NOVOLOG] 3 ML PEN SC SCH ×6 (08:07→20:35)
[2016-11-05] MEDS: MULTIVITAMINS THERAPEUTIC TAB PO SCH (09:32)
[2016-11-05] MEDS: ZINC SULFATE 220 MG CAP PO SCH (09:32)
[2016-11-05] MEDS: ASPIRIN 81 MG TAB PO SCH (09:32)
[2016-11-05] MEDS: FERROUS SULFATE (EC) 325 MG TAB PO SCH (09:32)
[2016-11-05] MEDS: OLANZAPINE 2.5 MG TAB PO SCH ×2 (09:32→20:28)
[2016-11-05] MEDS: PAROXETINE 10 MG TAB PO SCH (09:33)
[2016-11-05] MEDS: POLYETHYLENE GLYCOL 17 GM PACKET PO SCH (09:33)
[2016-11-05] MEDS: HEPARIN 5,000 UNIT/0.5 ML VIAL SC SCH (09:40)
--- NOTE | 2016-11-05 12:47 | PN ---
Date/Time of Note Date/Time of Note DATE: 11/05/16 TIME: 12:44 Assessment/Plan VTE Prophylaxis VTE Prophylaxis Intervention: heparin Lines/Catheters IV [facility] Urinary Cath still in place: No Assessment/Plan Chief Complaint/Hosp Course #1 Osteomyelitis of the left atrium and pubic ramus: CT identified osteomyelitis. From History obtained from , this is chronic but has never been completely treated. The patient has no active ulcer at this time, just a deep indentation where the wound sample was taken. #2 Hx of stage IV decubitus ulcer: Ulcer was underlying #1. No need for debridement, no further intervention required #3 diabetes mellitus: Good in-house control #4 hypothyroidism: Continue patient's home medication #5 mental health: Patient with history of schizophrenia and depression. At the current time we will continue her home medications #6 history of vulvar malignancy: Patient is status post radiation therapy approximately 6 months ago - requesting Gynonc review for possible hysterectomy for vulval cancer, patient however at this time is not a good surgical candidate. This may be pursued outpt. #7 anemia: Continue to monitor this time. Blood transfusions as indicated. #8 DVT and GI prophylaxis: Heparin, Protonix Discharge planning: DC back to assisted with antibiotics 6 weeks, she does not want return to previous assisted will discuss with case maker Problems: Subjective 24 Hr Interval Summary Constitutional: no complaints Exam/Review of Systems Vital Signs Vitals Vital Signs Date Time Temp Pulse Resp B/P Pulse Ox O2 Delivery O2 Flow Rate FiO2 11/05/16 07:47 97.9 71 19 129/69 99 11/02/16 05:15 Nasal Cannula 2.0 Intake and Output 11/04/16 11/04/16 11/05/16 15:00 23:00 07:00 Intake Total 1680 ml 480 ml Output Total 1 ml Balance 1680 ml 479 ml Exam Constitutional: alert Respiratory: clear to auscultation Cardiovascular: regular rate and rhythm Gastrointestinal: soft, No distended Musculoskeletal: nl extremities to inspection Results Result Diagram: 11/04/16 0673 11/05/16 0500 Results 24 hrs Laboratory Tests Test 11/04/16 17:18 11/04/16 22:11 11/05/16 02:50 11/05/16 05:00 Bedside Glucose 178 361 H 219 Sodium Level 140 Potassium Level 4.5 Chloride Level 108 Carbon Dioxide Level 24 Anion Gap 13 Blood Urea Nitrogen 23 H Creatinine 0.72 Glucose Level 138 # Calcium Level 9.7 Test 11/05/16 07:41 11/05/16 08:23 11/05/16 08:46 11/05/16 12:12 Bedside Glucose 63 L 72 185 174 Medications Medications Current Medications Aspirin (Aspirin) 81 mg DAILY PO Last administered on 11/05/16 09:32; Admin Dose 81 MG; Start 11/02/16 at 09:00 Atorvastatin Calcium (Lipitor) 10 mg QHS PO Last administered on 11/04/16 22:16 ; Admin Dose 10 MG; Start 11/02/16 at 21:00 Ferrous Sulfate (Ferrous Sulfate (Ec)) 325 mg DAILY PO Last administered on 11/05 09:32; Admin Dose 325 MG; Start 11/02/16 at 09:00 Multivitamins Therapeutic (Theragran) 1 tab DAILY PO Last administered on 09:32; Admin Dose 1 TAB; Start 11/02/16 at 09:00 Olanzapine (Zyprexa) 2.5 mg BID PO Last administered on 11/05/16 09:32; Admin Dose 2.5 MG; Start 11/02/16 at 09:00 Paroxetine HCl (Paxil) 30 mg DAILY PO Last administered on 11/05/16 09:33; Admin Dose 30 MG; Start 11/02/16 at 09:00 Zinc Sulfate (Zinc Sulfate) 220 mg DAILY PO Last administered on 11/05/16 09:32 ; Admin Dose 220 MG; Start 11/02/16 at 09:00 Ondansetron HCl (Zofran Inj) 4 mg Q6H PRN IV NAUSEA AND/OR VOMITING; Start 11/02 at 03:30 Acetaminophen (Tylenol Tab) 650 mg Q6H PRN PO PAIN LEVEL 1-3 OR FEVER; Start at 03:30 Morphine Sulfate (morphine) 2 mg Q4H PRN IV PAIN LEVEL 7-10; Start 11/02/16 at 03:30 Heparin Sodium (Porcine) (Heparin (5000 Units/0.5 ml)) 5,000 unit Q12 SC Last administered on 11/05/16 09:40; Admin Dose 5,000 UNIT; Start 11/02/16 at 03:36 Diagnostic Test (Pha) (Accu-Chek) 1 ea 02 XX Last administered on 11/03/16 02: 06; Admin Dose 1 EA; Start 11/03/16 at 02:00 Miscellaneous Information 1 ea NOTE XX ; Start 11/02/16 at 03:45 Glucose (Glutose) 15 gm Q15M PRN PO DECREASED GLUCOSE; Start 11/02/16 at 03:45 Glucose (Glutose) 22.5 gm Q15M PRN PO DECREASED GLUCOSE; Start 11/02/16 at 03:45 Dextrose (D50w Syringe) 25 ml Q15M PRN IV DECREASED GLUCOSE; Start 11/02/16 at 03:45 Dextrose (D50w Syringe) 50 ml Q15M PRN IV DECREASED GLUCOSE; Start 11/02/16 at 03:45 Glucagon (Glucagen) 1 mg Q15M PRN IM DECREASED GLUCOSE; Start 11/02/16 at 03:45 Glucose (Glutose) 15 gm Q15M PRN BUCCAL DECREASED GLUCOSE; Start 11/02/16 at 03: 45 Polyethylene Glycol (Miralax) 8.5 gm DAILY PO Last administered on 11/05/16 09: 33; Admin Dose 8.5 GM; Start 11/03/16 at 09:00 Bisacodyl (Dulcolax) 5 mg BID PRN PO CONSTIPATION Last administered on 17:44; Admin Dose 5 MG; Start 11/03/16 at 09:00 Docusate Sodium (Colace) 100 mg BID PRN PO CONSTIPATION; Start 11/03/16 at 09:00 Magnesium Hydroxide 30 ml 30 ml DAILY PRN PO CONSTIPATION; Start 11/03/16 at 09: 00 Vancomycin HCl 250 ml @ 125 mls/hr Q12H IVPB Last administered on 11/05/16 03: 50; Admin Dose 125 MLS/HR; Start 11/03/16 at 15:30 Ceftriaxone Sodium (Rocephin) 50 ml @ 100 mls/hr Q24H IVPB Last administered on 11/04/16 18:12; Admin Dose 100 MLS/HR; Start 11/03/16 at 18:00 Insulin Detemir (Levemir) 15 unit QHS SC ; Start 11/05/16 at 21:00 GUY ROJO Nov 05, 2016 12:47
[2016-11-05] MEDS: CEFTRIAXONE 2 GM/50 ML (PMX) 50 ML IVPB SCH (18:30)
[2016-11-05 20:00] VITALS: BP 138/63; RESP 16
[2016-11-05] MEDS: ATORVASTATIN 10 MG TAB PO SCH (20:28)
[2016-11-05] MEDS: INSULIN DETEMIR [LEVEMIR] 3ML CART SC SCH (20:36)
[2016-11-06] MEDS: ACCU-CHEK XX SCH (02:27)
[2016-11-06 05:13] LABS: ADD SCAN DIFF NO
[2016-11-06 05:21] LABS: BASOPHIL # 0.1 10^3/ul (0.0-0.1); BASOPHILS % 1.7 % (0.0-2.0); EOSINOPHILS # 0.5 10^3/ul (0.0-0.5); EOSINOPHILS % 9.9 % (0.0-7.0); HEMOGLOBIN 10.3 g/dl (12.0-16.0); LYMPHOCYTES # 1.4 10^3/ul (0.8-2.9); MEAN CORPUSCULAR HEMOGLOBIN 25.6 pg (29.0-33.0); MEAN CORPUSCULAR HGB CONC 29.4 g/dl (32.0-37.0); MEAN CORPUSCULAR VOLUME 86.8 fl (82.0-101.0); MEAN PLATELET VOLUME 10.9 fl (7.4-10.4); MONOCYTE # 0.4 10^3/ul (0.3-0.9); MONOCYTES % 7.8 % (0.0-11.0); NEUTROPHIL # 2.3 10^3/ul (1.6-7.5); NEUTROPHILS % 50.2 % (39.0-77.0); PLATELET COUNT 270 10^3/UL (140-415); RED BLOOD COUNT 4.03 10^6/ul (4.20-5.40); RED CELL DISTRIBUTION WIDTH 20.8 % (11.5-14.5); WHITE BLOOD COUNT 4.6 10^3/ul (4.8-10.8)
[2016-11-06 05:43] LABS: CALCIUM 10.3 mg/dl (8.4-10.2); CREATININE 0.82 mg/dl (0.44-1.00); POTASSIUM 4.7 mmol/L (3.5-5.1)
[2016-11-06] MEDS: LEVOTHYROXINE 88 MCG TAB PO SCH (06:30)
[2016-11-06] MEDS: INSULIN ASPART [NOVOLOG] 3 ML PEN SC SCH ×7 (07:57→20:36)
[2016-11-06 07:59] VITALS: BP 144/65; RESP 18
[2016-11-06] MEDS: FERROUS SULFATE (EC) 325 MG TAB PO SCH (09:00)
[2016-11-06] MEDS: MULTIVITAMINS THERAPEUTIC TAB PO SCH (09:00)
[2016-11-06] MEDS: ZINC SULFATE 220 MG CAP PO SCH (09:00)
[2016-11-06] MEDS: PAROXETINE 10 MG TAB PO SCH (09:00)
[2016-11-06] MEDS: OLANZAPINE 2.5 MG TAB PO SCH ×2 (09:01→20:31)
[2016-11-06] MEDS: POLYETHYLENE GLYCOL 17 GM PACKET PO SCH (09:01)
[2016-11-06] MEDS ORDERED: VANCOMYCIN 1 GM in NS 250 ML IVPB SCH (09:30)
--- NOTE | 2016-11-06 13:34 | CONS ---
Date/Time of Note Date/Time of Note DATE: 11/06/16 TIME: 13:32 Assessment/Plan Assessment/Plan Chief Complaint/Hosp Course No acute changes overnight, patient is alert, lying comfortably in bed, no fevers. Microbiology: Ischial wound culture grew Proteus mirabilis, enterococcus species , Corynebacterium group JK, coag negative staph species Antimicrobials. Vancomycin and Rocephin Diagnostics: CT of the pelvis revealed osteomyelitis of left ischium Physical examination: Well-developed, fragile elderly woman who is laying comfortably in bed. Head atraumatic, normocephalic, sclera nonicteric. Neck is supple, trachea midline. Chest rise symmetrical, breath sounds diminished to bases. Abdomen soft bowel tones present. Extremities without cyanosis. Assessment: 1. Left ischial osteomyelitis with wound culture growing multiple bacteria 2. Diabetes mellitus 3. History of vulvar malignancy, status post radiation 6 months ago 4. History of schizophrenia and depression Plan: Remains stable, continue present care, antibiotics, anticipate discharge on current antibiotics for 6 weeks to treat osteomyelitis. Discussed with RN Problems: Consultation Date/Type/Reason Admit Date/Time Nov 02, 2016 at 13:50 Initial Consult Date 11/02/16 Type of Consultation: Infectious disease Referring Provider: FREDY KAUFMAN Exam/Review of Systems Vital Signs Vitals Vital Signs Date Time Temp Pulse Resp B/P Pulse Ox O2 Delivery O2 Flow Rate FiO2 11/06/16 07:59 97.4 98 18 144/65 98 Intake and Output 11/05/16 11/05/16 11/06/16 15:00 23:00 07:00 Intake Total 2260 ml 1640 ml Balance 2260 ml 1640 ml Results Result Diagram: 11/06/16 0450 11/06/16 0450 Results 24 hrs Laboratory Tests Test 11/05/16 17:28 11/05/16 20:27 11/06/16 02:25 11/06/16 02:27 Bedside Glucose 129 258 H 313 H Vancomycin Level Trough 20.0 Test 11/06/16 04:50 11/06/16 07:46 11/06/16 12:06 White Blood Count 4.6 L Red Blood Count 4.03 L Hemoglobin 10.3 L Hematocrit 35.0 L Mean Corpuscular Volume 86.8 Mean Corpuscular Hemoglobin 25.6 L Mean Corpuscular Hemoglobin Concent 29.4 L Red Cell Distribution Width 20.8 H Platelet Count 270 Mean Platelet Volume 10.9 H Neutrophils % 50.2 Lymphocytes % 30.0 Monocytes % 7.8 Eosinophils % 9.9 H Basophils % 1.7 Nucleated Red Blood Cells % 0.0 Neutrophils # 2.3 Lymphocytes # 1.4 Monocytes # 0.4 Eosinophils # 0.5 Basophils # 0.1 Nucleated Red Blood Cells # 0.0 Sodium Level 143 Potassium Level 4.7 Chloride Level 104 Carbon Dioxide Level 27 Anion Gap 17 H Blood Urea Nitrogen 23 H Creatinine 0.82 Glucose Level 253 #H Calcium Level 10.3 H Bedside Glucose 164 179 Medications Medications Current Medications Aspirin (Aspirin) 81 mg DAILY PO Last administered on 11/05/16 09:32; Admin Dose 81 MG; Start 11/02/16 at 09:00; Status Future Hold Atorvastatin Calcium (Lipitor) 10 mg QHS PO Last administered on 11/05/16 20:28 ; Admin Dose 10 MG; Start 11/02/16 at 21:00 Ferrous Sulfate (Ferrous Sulfate (Ec)) 325 mg DAILY PO Last administered on 11/06 09:00; Admin Dose 325 MG; Start 11/02/16 at 09:00 Multivitamins Therapeutic (Theragran) 1 tab DAILY PO Last administered on 09:00; Admin Dose 1 TAB; Start 11/02/16 at 09:00 Olanzapine (Zyprexa) 2.5 mg BID PO Last administered on 11/06/16 09:01; Admin Dose 2.5 MG; Start 11/02/16 at 09:00 Paroxetine HCl (Paxil) 30 mg DAILY PO Last administered on 11/06/16 09:00; Admin Dose 30 MG; Start 11/02/16 at 09:00 Zinc Sulfate (Zinc Sulfate) 220 mg DAILY PO Last administered on 11/06/16 09:00 ; Admin Dose 220 MG; Start 11/02/16 at 09:00 Ondansetron HCl (Zofran Inj) 4 mg Q6H PRN IV NAUSEA AND/OR VOMITING; Start 11/02 at 03:30 Acetaminophen (Tylenol Tab) 650 mg Q6H PRN PO PAIN LEVEL 1-3 OR FEVER; Start at 03:30 Morphine Sulfate (morphine) 2 mg Q4H PRN IV PAIN LEVEL 7-10; Start 11/02/16 at 03:30 Heparin Sodium (Porcine) (Heparin (5000 Units/0.5 ml)) 5,000 unit Q12 SC Last administered on 11/05/16 09:40; Admin Dose 5,000 UNIT; Start 11/02/16 at 03:36; Status Future Hold Diagnostic Test (Pha) (Accu-Chek) 1 ea 02 XX Last administered on 11/06/16 02: 27; Admin Dose 1 EA; Start 11/03/16 at 02:00 Miscellaneous Information 1 ea NOTE XX ; Start 11/02/16 at 03:45 Glucose (Glutose) 15 gm Q15M PRN PO DECREASED GLUCOSE; Start 11/02/16 at 03:45 Glucose (Glutose) 22.5 gm Q15M PRN PO DECREASED GLUCOSE; Start 11/02/16 at 03:45 Dextrose (D50w Syringe) 25 ml Q15M PRN IV DECREASED GLUCOSE; Start 11/02/16 at 03:45 Dextrose (D50w Syringe) 50 ml Q15M PRN IV DECREASED GLUCOSE; Start 11/02/16 at 03:45 Glucagon (Glucagen) 1 mg Q15M PRN IM DECREASED GLUCOSE; Start 11/02/16 at 03:45 Glucose (Glutose) 15 gm Q15M PRN BUCCAL DECREASED GLUCOSE; Start 11/02/16 at 03: 45 Polyethylene Glycol (Miralax) 8.5 gm DAILY PO Last administered on 11/06/16 09: 01; Admin Dose 8.5 GM; Start 11/03/16 at 09:00 Bisacodyl (Dulcolax) 5 mg BID PRN PO CONSTIPATION Last administered on 17:44; Admin Dose 5 MG; Start 11/03/16 at 09:00 Docusate Sodium (Colace) 100 mg BID PRN PO CONSTIPATION; Start 11/03/16 at 09:00 Magnesium Hydroxide 30 ml 30 ml DAILY PRN PO CONSTIPATION; Start 11/03/16 at 09: 00 Ceftriaxone Sodium (Rocephin) 50 ml @ 100 mls/hr Q24H IVPB Last administered on 11/05/16 18:30; Admin Dose 100 MLS/HR; Start 11/03/16 at 18:00 Insulin Detemir 15 unit 15 unit QHS SC Last administered on 11/05/16t 20:36; Admin Dose 15 UNIT; Start 11/05/16 at 21:00 Vancomycin HCl/ Sodium Chloride (Vancocin/NS) 150 ml @ 75 mls/hr Q12 IVPB ; Start 11/06/16 at 21:00 MARCUS HUITRON NP Nov 06, 2016 13:34
--- NOTE | 2016-11-06 16:54 | PN ---
Date/Time of Note Date/Time of Note DATE: 11/06/16 TIME: 16:53 Assessment/Plan VTE Prophylaxis VTE Prophylaxis Intervention: heparin Lines/Catheters IV [facility] Urinary Cath still in place: No Assessment/Plan Chief Complaint/Hosp Course #1 Osteomyelitis of the left atrium and pubic ramus: CT identified osteomyelitis. From History obtained from , this is chronic but has never been completely treated. The patient has no active ulcer at this time, just a deep indentation where the wound sample was taken. #2 Hx of stage IV decubitus ulcer: Ulcer was underlying #1. No need for debridement, no further intervention required #3 diabetes mellitus: Improved control Continue current regimen #4 hypothyroidism: Continue patient's home medication #5 mental health: Patient with history of schizophrenia and depression. At the current time we will continue her home medications #6 history of vulvar malignancy: Patient is status post radiation therapy approximately 6 months ago - requesting Gynonc review for possible hysterectomy for vulval cancer, patient however at this time is not a good surgical candidate. This may be pursued outpt. #7 anemia: Continue to monitor this time. Blood transfusions as indicated. #8 DVT and GI prophylaxis: Heparin, Protonix Discharge planning: DC back to residential likely tomorrow with antibiotics 6 weeks, she does not want return to previous residential will discuss with correctional case records supervisor Problems: Subjective 24 Hr Interval Summary Constitutional: no complaints Exam/Review of Systems Vital Signs Vitals Vital Signs Date Time Temp Pulse Resp B/P Pulse Ox O2 Delivery O2 Flow Rate FiO2 11/06/16 07:59 97.4 98 18 144/65 98 Intake and Output 11/05/16 11/05/16 11/06/16 15:00 23:00 07:00 Intake Total 2260 ml 1640 ml Balance 2260 ml 1640 ml Exam Constitutional: alert Respiratory: clear to auscultation Cardiovascular: regular rate and rhythm Gastrointestinal: soft, No distended Musculoskeletal: nl extremities to inspection Results Result Diagram: 11/06/16 0450 11/06/16 0450 Results 24 hrs Laboratory Tests Test 11/05/16 17:28 11/05/16 20:27 11/06/16 02:25 11/06/16 02:27 Bedside Glucose 129 258 H 313 H Vancomycin Level Trough 20.0 Test 11/06/16 04:50 11/06/16 07:46 11/06/16 12:06 White Blood Count 4.6 L Red Blood Count 4.03 L Hemoglobin 10.3 L Hematocrit 35.0 L Mean Corpuscular Volume 86.8 Mean Corpuscular Hemoglobin 25.6 L Mean Corpuscular Hemoglobin Concent 29.4 L Red Cell Distribution Width 20.8 H Platelet Count 270 Mean Platelet Volume 10.9 H Neutrophils % 50.2 Lymphocytes % 30.0 Monocytes % 7.8 Eosinophils % 9.9 H Basophils % 1.7 Nucleated Red Blood Cells % 0.0 Neutrophils # 2.3 Lymphocytes # 1.4 Monocytes # 0.4 Eosinophils # 0.5 Basophils # 0.1 Nucleated Red Blood Cells # 0.0 Sodium Level 143 Potassium Level 4.7 Chloride Level 104 Carbon Dioxide Level 27 Anion Gap 17 H Blood Urea Nitrogen 23 H Creatinine 0.82 Glucose Level 253 #H Calcium Level 10.3 H Bedside Glucose 164 179 Medications Medications Current Medications Aspirin (Aspirin) 81 mg DAILY PO Last administered on 11/05/16 09:32; Admin Dose 81 MG; Start 11/02/16 at 09:00; Status Future Hold Atorvastatin Calcium (Lipitor) 10 mg QHS PO Last administered on 11/05/16 20:28 ; Admin Dose 10 MG; Start 11/02/16 at 21:00 Ferrous Sulfate (Ferrous Sulfate (Ec)) 325 mg DAILY PO Last administered on 11/06 09:00; Admin Dose 325 MG; Start 11/02/16 at 09:00 Multivitamins Therapeutic (Theragran) 1 tab DAILY PO Last administered on 09:00; Admin Dose 1 TAB; Start 11/02/16 at 09:00 Olanzapine (Zyprexa) 2.5 mg BID PO Last administered on 11/06/16 09:01; Admin Dose 2.5 MG; Start 11/02/16 at 09:00 Paroxetine HCl (Paxil) 30 mg DAILY PO Last administered on 11/06/16 09:00; Admin Dose 30 MG; Start 11/02/16 at 09:00 Zinc Sulfate (Zinc Sulfate) 220 mg DAILY PO Last administered on 11/06/16 09:00 ; Admin Dose 220 MG; Start 11/02/16 at 09:00 Ondansetron HCl (Zofran Inj) 4 mg Q6H PRN IV NAUSEA AND/OR VOMITING; Start 11/02 at 03:30 Acetaminophen (Tylenol Tab) 650 mg Q6H PRN PO PAIN LEVEL 1-3 OR FEVER; Start at 03:30 Morphine Sulfate (morphine) 2 mg Q4H PRN IV PAIN LEVEL 7-10; Start 11/02/16 at 03:30 Heparin Sodium (Porcine) (Heparin (5000 Units/0.5 ml)) 5,000 unit Q12 SC Last administered on 11/05/16 09:40; Admin Dose 5,000 UNIT; Start 11/02/16 at 03:36; Status Future Hold Diagnostic Test (Pha) (Accu-Chek) 1 ea 02 XX Last administered on 11/06/16 02: 27; Admin Dose 1 EA; Start 11/03/16 at 02:00 Miscellaneous Information 1 ea NOTE XX ; Start 11/02/16 at 03:45 Glucose (Glutose) 15 gm Q15M PRN PO DECREASED GLUCOSE; Start 11/02/16 at 03:45 Glucose (Glutose) 22.5 gm Q15M PRN PO DECREASED GLUCOSE; Start 11/02/16 at 03:45 Dextrose (D50w Syringe) 25 ml Q15M PRN IV DECREASED GLUCOSE; Start 11/02/16 at 03:45 Dextrose (D50w Syringe) 50 ml Q15M PRN IV DECREASED GLUCOSE; Start 11/02/16 at 03:45 Glucagon (Glucagen) 1 mg Q15M PRN IM DECREASED GLUCOSE; Start 11/02/16 at 03:45 Glucose (Glutose) 15 gm Q15M PRN BUCCAL DECREASED GLUCOSE; Start 11/02/16 at 03: 45 Polyethylene Glycol (Miralax) 8.5 gm DAILY PO Last administered on 11/06/16 09: 01; Admin Dose 8.5 GM; Start 11/03/16 at 09:00 Bisacodyl (Dulcolax) 5 mg BID PRN PO CONSTIPATION Last administered on 17:44; Admin Dose 5 MG; Start 11/03/16 at 09:00 Docusate Sodium (Colace) 100 mg BID PRN PO CONSTIPATION; Start 11/03/16 at 09:00 Magnesium Hydroxide 30 ml 30 ml DAILY PRN PO CONSTIPATION; Start 11/03/16 at 09: 00 Ceftriaxone Sodium (Rocephin) 50 ml @ 100 mls/hr Q24H IVPB Last administered on 11/05/16 18:30; Admin Dose 100 MLS/HR; Start 11/03/16 at 18:00 Insulin Detemir 15 unit 15 unit QHS SC Last administered on 11/05/16 20:36; Admin Dose 15 UNIT; Start 11/05/16 at 21:00 Vancomycin HCl/ Sodium Chloride (Vancocin/NS) 150 ml @ 75 mls/hr Q12 IVPB ; Start 11/06/16 at 21:00 GUY ROJO Nov 06, 2016 16:54
[2016-11-06] MEDS: CEFTRIAXONE 2 GM/50 ML (PMX) 50 ML IVPB SCH (17:32)
[2016-11-06 20:21] VITALS: BP 142/76; RESP 18
[2016-11-06] MEDS: VANCOMYCIN 750 MG in SOD CHLORIDE 0.9% 150 ML IVPB SCH (20:31)
[2016-11-06] MEDS: ATORVASTATIN 10 MG TAB PO SCH (20:31)
[2016-11-06] MEDS: INSULIN DETEMIR [LEVEMIR] 3ML CART SC SCH (20:36)
[2016-11-07] MEDS: ACCU-CHEK XX SCH (02:46)
[2016-11-07] MEDS: LEVOTHYROXINE 88 MCG TAB PO SCH ×2 (06:05→09:05)
[2016-11-07 07:31] VITALS: BP 142/69; RESP 18
[2016-11-07] MEDS: INSULIN ASPART [NOVOLOG] 3 ML PEN SC SCH ×6 (08:04→17:50)
[2016-11-07] MEDS: FERROUS SULFATE (EC) 325 MG TAB PO SCH (09:05)
[2016-11-07] MEDS: OLANZAPINE 2.5 MG TAB PO SCH (09:05)
[2016-11-07] MEDS: POLYETHYLENE GLYCOL 17 GM PACKET PO SCH (09:06)
[2016-11-07] MEDS: PAROXETINE 10 MG TAB PO SCH (09:06)
[2016-11-07] MEDS: MULTIVITAMINS THERAPEUTIC TAB PO SCH (09:06)
[2016-11-07] MEDS: ZINC SULFATE 220 MG CAP PO SCH (09:06)
[2016-11-07] MEDS: VANCOMYCIN 750 MG in SOD CHLORIDE 0.9% 150 ML IVPB SCH (09:07)
--- NOTE | 2016-11-07 12:12 | CONS ---
Date/Time of Note Date/Time of Note DATE: 11/07/16 TIME: 12:12 Assessment/Plan Assessment/Plan Chief Complaint/Hosp Course No acute changes overnight, patient is alert, lying comfortably in bed, no fevers. Microbiology: Ischial wound culture grew Proteus mirabilis, enterococcus species , Corynebacterium group JK, coag negative staph species Antimicrobials. Vancomycin and Rocephin Diagnostics: CT of the pelvis revealed osteomyelitis of left ischium Physical examination: Well-developed, fragile elderly woman who is laying comfortably in bed. Head atraumatic, normocephalic, sclera nonicteric. Neck is supple, trachea midline. Chest rise symmetrical, breath sounds diminished to bases. Abdomen soft bowel tones present. Extremities without cyanosis. Assessment: 1. Left ischial osteomyelitis with wound culture growing multiple bacteria 2. Diabetes mellitus 3. History of vulvar malignancy, status post radiation 6 months ago 4. History of schizophrenia and depression Plan: Remains stable, continue present care, antibiotics, anticipate discharge on current antibiotics for 6 weeks to treat osteomyelitis. Discussed with RN Problems: Consultation Date/Type/Reason Admit Date/Time Nov 02, 2016 at 13:50 Initial Consult Date 11/02/16 Type of Consultation: Infectious disease Referring Provider: FREDY KAUFMAN Exam/Review of Systems Vital Signs Vitals Vital Signs Date Time Temp Pulse Resp B/P Pulse Ox O2 Delivery O2 Flow Rate FiO2 11/07/16 07:31 98.4 67 18 142/69 94 Intake and Output 11/06/16 11/06/16 11/07/16 15:00 23:00 07:00 Intake Total 850 ml 1160 ml Balance 850 ml 1160 ml Results Result Diagram: 11/06/16 0450 11/06/16 0450 Results 24 hrs Laboratory Tests Test 11/06/16 17:12 11/06/16 20:29 11/07/16 02:45 11/07/16 08:02 Bedside Glucose 276 H 220 111 97 Medications Medications Current Medications Aspirin (Aspirin) 81 mg DAILY PO Last administered on 11/05/16 09:32; Admin Dose 81 MG; Start 11/02/16 at 09:00; Status Future Hold Atorvastatin Calcium (Lipitor) 10 mg QHS PO Last administered on 11/06/16 20:31 ; Admin Dose 10 MG; Start 11/02/16 at 21:00 Ferrous Sulfate (Ferrous Sulfate (Ec)) 325 mg DAILY PO Last administered on 11/07 09:05; Admin Dose 325 MG; Start 11/02/16 at 09:00 Multivitamins Therapeutic (Theragran) 1 tab DAILY PO Last administered on 09:06; Admin Dose 1 TAB; Start 11/02/16 at 09:00 Olanzapine (Zyprexa) 2.5 mg BID PO Last administered on 11/07/16 09:05; Admin Dose 2.5 MG; Start 11/02/16 at 09:00 Paroxetine HCl (Paxil) 30 mg DAILY PO Last administered on 11/07/16 09:06; Admin Dose 30 MG; Start 11/02/16 at 09:00 Zinc Sulfate (Zinc Sulfate) 220 mg DAILY PO Last administered on 11/07/16 09:06 ; Admin Dose 220 MG; Start 11/02/16 at 09:00 Ondansetron HCl (Zofran Inj) 4 mg Q6H PRN IV NAUSEA AND/OR VOMITING; Start 11/02 at 03:30 Acetaminophen (Tylenol Tab) 650 mg Q6H PRN PO PAIN LEVEL 1-3 OR FEVER; Start at 03:30 Morphine Sulfate (morphine) 2 mg Q4H PRN IV PAIN LEVEL 7-10; Start 11/02/16 at 03:30 Heparin Sodium (Porcine) (Heparin (5000 Units/0.5 ml)) 5,000 unit Q12 SC Last administered on 11/05/16 09:40; Admin Dose 5,000 UNIT; Start 11/02/16 at 03:36; Status Future Hold Diagnostic Test (Pha) (Accu-Chek) 1 ea 02 XX Last administered on 11/07/16 02: 46; Admin Dose 1 EA; Start 11/03/16 at 02:00 Miscellaneous Information 1 ea NOTE XX ; Start 11/02/16 at 03:45 Glucose (Glutose) 15 gm Q15M PRN PO DECREASED GLUCOSE; Start 11/02/16 at 03:45 Glucose (Glutose) 22.5 gm Q15M PRN PO DECREASED GLUCOSE; Start 11/02/16 at 03:45 Dextrose (D50w Syringe) 25 ml Q15M PRN IV DECREASED GLUCOSE; Start 11/02/16 at 03:45 Dextrose (D50w Syringe) 50 ml Q15M PRN IV DECREASED GLUCOSE; Start 11/02/16 at 03:45 Glucagon (Glucagen) 1 mg Q15M PRN IM DECREASED GLUCOSE; Start 11/02/16 at 03:45 Glucose (Glutose) 15 gm Q15M PRN BUCCAL DECREASED GLUCOSE; Start 11/02/16 at 03: 45 Polyethylene Glycol (Miralax) 8.5 gm DAILY PO Last administered on 11/07/16 09: 06; Admin Dose 8.5 GM; Start 11/03/16 at 09:00 Bisacodyl (Dulcolax) 5 mg BID PRN PO CONSTIPATION Last administered on 17:44; Admin Dose 5 MG; Start 11/03/16 at 09:00 Docusate Sodium (Colace) 100 mg BID PRN PO CONSTIPATION; Start 11/03/16 at 09:00 Magnesium Hydroxide 30 ml 30 ml DAILY PRN PO CONSTIPATION; Start 11/03/16 at 09: 00 Ceftriaxone Sodium (Rocephin) 50 ml @ 100 mls/hr Q24H IVPB Last administered on 11/06/16 17:32; Admin Dose 100 MLS/HR; Start 11/03/16 at 18:00 Insulin Detemir 15 unit 15 unit QHS SC Last administered on 11/06/16 20:36; Admin Dose 15 UNIT; Start 11/05/16 at 21:00 Vancomycin HCl/ Sodium Chloride (Vancocin/NS) 150 ml @ 75 mls/hr Q12 IVPB Last administered on 11/07/16 09:07; Admin Dose 75 MLS/HR; Start 11/06/16 at 21: 00 Miscellaneous Information (*Rx Drug Level Order Reminder*) VANCO TROUGH @ 0, 800 ON... ONCE ONCE XX ; Start 11/08/16 at 08:00; Stop 11/08/16 at 08:01 MARCUS HUITRON NP Nov 07, 2016 12:12
[2016-11-07 15:00] VITALS: BP 111/58; PULSE 63; RESP 16
[2016-11-07] MEDS: CEFTRIAXONE 2 GM/50 ML (PMX) 50 ML IVPB SCH (17:46)
[2016-11-07 18:09] VITALS: BP 133/68; RESP 16
--- NOTE | 2016-11-07 18:26 | DS ---
Date/Time of Note Date/Time of Note DATE: 11/07/16 TIME: 18:15 Discharge Summary Admission/Discharge Info Admit Date/Time Nov 02, 2016 at 13:50 Discharge Date/Time November 07, 2016 Discharge Diagnosis #1 Osteomyelitis of the left atrium and pubic ramus: CT identified osteomyelitis. From History obtained from , this is chronic but has never been completely treated DC with 6 weeks of IV antibiotics with vancomycin and Rocephin per ID #2 Hx of stage IV decubitus ulcer: Ulcer was underlying #1. No need for debridement, no further intervention required #3 diabetes mellitus: Improved control Continue in-house regimen of Levemir 15 units at night and 5 units of NovoLog with meals, DC previous insulin regimen as patient's sugars were too labile #4 hypothyroidism: Continue patient's home medication #5 mental health: Patient with history of schizophrenia and depression Continue home medications, patient to be evaluated by psychiatry at the nursing facility #6 history of vulvar malignancy: Patient is status post radiation therapy approximately 6 months ago Outpatient follow-up #7 Anemia of chronic disease secondary to comorbidities #8. Debility Continue PT at rehab center Patient Condition: Good Hx of Present Illness Hospital Course Patient is 66-year-old female with history of psychiatric illness, vulvar cancer status post radiation, diabetes. Patient presents with hyperglycemia as well as acute on chronic left hip pain. Patient was found to have osteomyelitis of the left atrium and pubic ramus. Patient apparently was diagnosed with this in the past but has not completed a course of antibiotics. Patient did receive radiation therapy in this region secondary to her vulvar cancer. Patient was seen by ID and recommendation was to continue antibiotics with vancomycin and Rocephin for 6 weeks. After discussion with patient's it was decided patient can return to previous retirement facility, patient is to have psychiatric evaluation at the nursing facility. Patient's insulin regimen was changed such that she was started on Levemir 15 at night and NovoLog 5 with meals and sugars were more stable with this regimen. Prior to this regimen patient sugars were labile with multiple highs and lows but improved with the new regimen. The patient's decubitus ulcer did show multiple organisms and the patient is continue wound care at the nursing facility. The day of discharge patient's vitals labs physical exam are stable, patient had no acute complaints on the day of discharge. Home Meds Reported Medications Levothyroxine Sodium* (Levothyroxine Sodium*) 88 Mcg Tablet, 88 MCG PO BEFORE BREAKFAST, #30 TAB 11/02/16 Acetaminophen* (Tylenol*) 500 Mg Tab, 1000 MG PO Q4H Y for PAIN AND OR ELEVATED TEMP, TAB 11/02/16 Magnesium Hydroxide* (Milk Of Magnesia*) 400 Mg/5 Ml Oral.susp, 30 ML PO BID, ML 11/02/16 Na Phos,M-B/Na Phos,Di-Ba (Fleet Enema Extra) 230 Ml Enema, 230 ML RC, ENEMA 11/02/16 Olanzapine* (Zyprexa*) 2.5 Mg Tablet, 2.5 MG PO BID, #30 TAB 11/02/16 Paroxetine Hcl* (Paroxetine*) 30 Mg Tablet, 30 MG PO DAILY for DEPRESSION, TAB 11/02/16 Atorvastatin Calcium (Atorvastatin Calcium) 10 Mg Tablet, 10 MG PO QHS, #30 TAB 11/02/16 Zinc Sulfate* (Zinc Sulfate*) 220 Mg Cap, 220 MG PO DAILY, CAP 11/02/16 Ascorbic Acid* (Ascorbic Acid*) 500 Mg/5 Ml Syrup, 500 MG PO DAILY, #150 ML 11/02/16 Multivitamins* (Theragran*) 1 Tab Tab, 1 TAB PO DAILY, TAB 11/02/16 Ferrous Sulfate* (Ferrous Sulfate*) 325 Mg Tabec, 325 MG PO DAILY, TAB 11/02/16 Docusate Sodium* (Colace*) 100 Mg Capsule, 100 MG PO BID for HX CONSTIPATION, # 60 CAP TAKE 100MG TWICE DAILY FOR HX CONSTIPATION ; HOLD FOR LBM - 0900AM and 1700PM 11/02/16 Aspirin* (Aspirin* Chew) 81 Mg Tab.chew, 81 MG PO DAILY, TAB.CHEW 11/02/16 Arginine/Ascorbate Sod/Thom AC (Arginaid Powder) 1 Each Powd.pack, 1 EACH PO BID 11/02/16 Bisacodyl* (Dulcolax*) 5 Mg Tablet.dr, 5 MG PO DAILY for CONSTIPATION, TAB 11/02/16 Follow-up Plan Follow-up with physicians at the retirement facility, patient also to follow-up with a psychiatrist at the retirement facility Primary Care Provider Not On Staff Doctor Time spent on discharge: > 30 minutes Pending Labs Laboratory Tests Test 11/06/16 20:29 11/07/16 02:45 11/07/16 08:02 11/07/16 12:27 Bedside Glucose 220mg/dL (70-220) 111mg/dL (70-220) 97mg/dL (70-220) 194mg/dL (70-220) Test 11/07/16 17:45 Bedside Glucose 107mg/dL (70-220) GUY ROJO Nov 07, 2016 18:26
[2016-11-08] MEDS ORDERED: BALSAM PERU/CASTOR OIL 60 GM TUBE TOP SCH (09:00)
== END 2016-11-07 19:00 | DRG 637 ==
LOC: E/R 21:53 → MS2 11-02 02:58 → OBSVTOIN 11-02 13:50
PROVIDERS: ADMIT Family Medicine; ATTEND Family Medicine
PROC: 4A033R1 Measurement of Arterial Saturation, Peripheral, Percutaneous Approach (ICD-10-PCS; principal; 2016-11-01)
DX: E11.69 Type 2 diabetes mellitus with other specified complication (principal); L89.154 Pressure ulcer of sacral region, stage 4; M86.152 Other acute osteomyelitis, left femur; M86.18 Other acute osteomyelitis, other site; E11.65 Type 2 diabetes mellitus with hyperglycemia; E78.5 Hyperlipidemia, unspecified; E03.9 Hypothyroidism, unspecified; K21.9 Gastro-esophageal reflux disease without esophagitis; E86.0 Dehydration; D64.9 Anemia, unspecified; F20.9 Schizophrenia, unspecified; F32.9 Major depressive disorder, single episode, unspecified; Z85.44 Personal history of malignant neoplasm of other female genital organs; Z92.3 Personal history of irradiation; Z79.4 Long term (current) use of insulin; Z79.82 Long term (current) use of aspirin; Z88.0 Allergy status to penicillin
CPT/HCPCS: 36415; 36600; 70450; 71010; 72192; 73510; 80048; 80053; 80202; 82803; 82947; 82962; 83036; 83540; 83605; 83735; 85025; 85610; 85651; 85730; 87040; 87070; 96372; 96374; 96375; G0378; J1644; J1815; J1956; J2185; J3370; J7030